=== PATIENT | male | born 1945 | race Caucasian/White ===

== ENCOUNTER 2016-04-21 23:01 | Inpatient (IN) | payer OTHER, MEDICARE ==
--- NOTE | 2016-04-21 23:17 | PDOC ---
History of Present Illness <Sherin Mendoza - Last Filed: 04/22/16 02:52> - General History Source: Patient, Family, Spouse Exam Limitations: No Limitations - History of Present Illness Initial Comments: 04/21/16 23:55 The patient is a 70 year old male, with a significant past medical history of anemia, diabetes (on metformin), GERD, UTIs, hypertension, and hypothyroidism, who presents to the emergency department s/p syncopal episode about an hour ago. As per , she and the patient were out for dinner when suddenly the patient reported feeling dizzy and lightheaded. During this time, she got up to get him something to drink. When she came back the patient was passed out on the table for a couple of seconds. As per son, this was the patients first meal of the day. Since the episode, the patient reports feeling generally weak and is cold to the touch. The patient reports he is compliant with his diabetes medication. He states he visited his PCP, Dr. Calvillo, 2-3 days ago for a routine check up, where he was found to have a UTI. Prior to his visit to his PCP, he reports increased urinary frequency, but denies urgency, dysuria, or hematuria. The patient states his frequency continues today. The patient denies any nausea, vomiting, diarrhea, or constipation. The patient denies any fever, chills, cough, headache, or changes in vision. The patient denies any chest pain , diaphoresis, palpitations, or shortness of breath. The patient denies any recent travel or sick contacts. Allergies: None reported. Past Surgical History: Cholecystectomy, LAMI Social History: Former smoker and former ETOH consumer. Denies drug use. PCP: Dr. Chasity Calvillo <Deondre Soto - Last Filed: 04/22/16 03:04> - General Stated Complaint: DIABETIC Time Seen by Provider: 04/21/16 23:16 Past History - Past Medical History Anemia: Yes Asthma: No Cancer: No Cardiac Disorders: No CVA: No COPD: No CHF: No Dementia: No Diabetes: Yes (newly diagnosed, on metformin) GI Disorders: Yes (GERD) Disorders: Yes (UTI b/c urosepsis requiring ICU admission 2013) HTN: Yes Hypercholesterolemia: No Liver Disease: No Suicide Attempt (Hx): No Seizures: No Thyroid Disease: Yes - Surgical History Abdominal Surgery: No Appendectomy: No Cardiac Surgery: No Cholecystectomy: Yes (1976) Lung Surgery: No Neurologic Surgery: No Orthopedic Surgery: Yes (LAMI) - Psycho/Social/Smoking Cessation Hx Anxiety: No Suicidal Ideation: No Smoking History: Never smoked Have you smoked in the past 12 months: No Number of Cigarettes Smoked Daily: 5 If you are a former smoker, when did you quit?: 2000 Hx Alcohol Use: No Drug/Substance Use Hx: Yes Substance Use Type: Alcohol Hx Substance Use Treatment: No <Sherin Mendoza - Last Filed: 04/22/16 02:52> <Deondre Soto - Last Filed: 04/22/16 03:04> - Past Medical History Allergies/Adverse Reactions: Allergies Allergy/AdvReac Type Severity Reaction Status Date / Time No Known Allergies Allergy Verified 04/18/15 11:21 Home Medications: Ambulatory Orders Esomeprazole Mag Trihydrate [Nexium] 40 mg PO DAILY 10/28/13 Levothyroxine [Synthroid -] 100 mcg PO DAILY 10/28/13 Losartan/Hydrochlorothiazide [Hyzaar 50-12.5 Tablet] 1 each PO DAILY 10/28/13 Multivitamins [Multivit ([facility] Formulary)] 1 tab PO DAILY 10/28/13 Nebivolol HCl [Bystolic] 20 mg PO DAILY 10/28/13 Gabapentin 300 mg PO BID 09/28/14 Metformin HCl [Glucophage -] 500 mg PO BID 09/28/14 Tamsulosin HCl [Flomax -] 0.4 mg PO DAILY 09/28/14 Review of Systems - Review of Systems Able to Perform ROS?: Yes Comments:: 04/21/16 23:55 GENERAL/CONSTITUTIONAL: +Chills, +weakness. No fever. HEAD, EYES, EARS, NOSE AND THROAT: No change in vision. No ear pain or discharge. No sore throat. CARDIOVASCULAR: No chest pain or shortness of breath. RESPIRATORY: No cough, wheezing, or hemoptysis. GASTROINTESTINAL: No nausea, vomiting, diarrhea or constipation. GENITOURINARY: +Frequency. No dysuria or change in urination. MUSCULOSKELETAL: No joint or muscle swelling or pain. No neck or back pain. SKIN: No rash NEUROLOGIC: +Loss of consciousness. No headache, vertigo, or change in strength /sensation. ENDOCRINE: No increased thirst. No abnormal weight change. HEMATOLOGIC/LYMPHATIC: No anemia, easy bleeding, or history of blood clots. ALLERGIC/IMMUNOLOGIC: No hives or skin allergy. <Deondre Soto - Last Filed: 04/22/16 03:04> *Physical Exam - Vital Signs Last Vital Signs Temp Pulse Resp BP Pulse Ox 97 F L 62 18 103/64 95 04/21/16 23:01 04/21/16 23:30 04/21/16 23:01 04/21/16 23:30 04/21/16 23:01 - Physical Exam Comments: 04/21/16 23:55 GENERAL: Awake, alert, and fully oriented, in no acute distress. Afebrile. HEAD: No signs of trauma EYES: PERRLA, EOMI, sclera anicteric, conjunctiva clear ENT: Auricles normal inspection, hearing grossly normal, nares patent, oropharynx clear without exudates. Moist mucosa NECK: Normal ROM, supple, no lymphadenopathy, JVD, or masses LUNGS: Breath sounds equal, clear to auscultation bilaterally. No wheezes, and no crackles HEART: Regular rate and rhythm, normal S1 and S2, no murmurs, rubs or gallops ABDOMEN: Soft, nontender, normoactive bowel sounds. No guarding, no rebound. No masses EXTREMITIES: Normal range of motion, no edema. No clubbing or cyanosis. No cords, erythema, or tenderness NEUROLOGICAL: Cranial nerves II through XII grossly intact. Normal speech, normal gait SKIN: Warm, Dry, normal turgor, no rashes or lesions noted. <Deondre Soto - Last Filed: 04/22/16 03:04> Heart Score/ECG Review - ECG Impressions Comment:: 04/22/16 03:03 Vent. Rate: 63 bpm IMPRESSION: Normal sinus rhythm. Left axis deviation. Incomplete right bundle branch block. Minimal voltage criteria for LVH, may be normal variant. 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 PT FINALLY WENT TO DINNER WITH HIS , AND AFTER DINNER HE TOLD HER HE FELT DIZZY. SHE GOT UP TO GET HI A COKE AND CAME BACK AND FOUND HIM SLUMPED FORWARD ; HEAD ON THE TABLE. HE HAD NO SEIZURE ACTIVITY, AND HE STATES THAT HE DID NOT LOSE CONSCIOUSNESS. CT HEAD NORMAL. 04/22/16 01:27 Patient Name: Isaiah Corrales This is a preliminary report by imaging business intelligence consultant Exam: Noncontrast CT head Images: 227 Clinical indication: Syncope. Findings: Multiple axial images were obtained of the brain without contrast. There is no mass-effect, midline shift or hemorrhage. There is no intra-axial or extra-axial fluid collection. Atrophic involutional changes are noted. The visualized portions of the paranasal sinuses are clear. The middle ear cavities and mastoids are clear. Impression: No mass effect or intracranial hemorrhage. THIS DOCUMENT HAS BEEN ELECTRONICALLY SIGNED Pt states that his PMD started him on bactrim for uti on 04/18/16. Pt states that he had been urinating a lot and he is still urinating a lot. 04/22/16 01:28 His CPK is elevated and his CK-MB is elevated also. He has a normal EKG and normal troponin. I will admit him to telemetry for neuro consult and serial cardiac enzymes. <Sherin Mendoza - Last Filed: 04/22/16 02:52> *DC/Admit/Observation/Transfer - Discharge Dispostion Admit: Yes <Sherin Mendoza - Last Filed: 04/22/16 02:52> - Attestations Scribe Attestion: 04/21/16 23:56 Documentation prepared by Deondre Soto, acting as medical staff specialist for Sherin Mendoza MD. <Deondre Soto - Last Filed: 04/22/16 03:04> Diagnosis at time of Disposition: Syncopal episodes, Hypotension, Urinary tract infection - Discharge Dispostion Condition at time of disposition: Guarded
--- NOTE | 2016-04-21 23:28 | PDOC ---
NIH Stroke Scale - Last Known Well Date/Time & Onset Date Last Known Well: 04/21/16 Time Last Known Well: 22:00 - Initial Evaluation Level of consciousness: Alert Ask patient the month and their age: Answers both correctly Ask patient to open & close eyes; make fist and let go: Obeys both correctly Best gaze (horizontal eye movement): Normal Visual field testing: No visual field loss Facial paresis (Show teeth/raise eyebrows/close eyes tight): Normal symmetrical movement Motor Function: Left Arm: Normal Motor Function: Right Arm: Normal (extends arm 90 (or 45) degrees for 10 seconds without drift Motor Function: Left Leg: Normal (extends leg 30 degrees for 5 seconds without drift) Motor Function: Right Leg: Normal (extends leg 30 degrees for 5 seconds without drift) Limb Ataxia: No ataxia Sensory(Use pinprick test arms,legs,trunk,face/side to side): Normal Best language (Describe picture, name items, read sentences): No Aphasia Dysarthria (read several words): Normal articulation Extinction and Inattention: No abnormality - Total Score NIH Stroke Scale Score: 0
[2016-04-21] MEDS ORDERED: SODIUM CHLORIDE 0.9% 500 ML INFUS.BAG IV ONE (23:29)
[2016-04-22 00:02] LABS: BASOPHIL 0.4 % (0-2.0); EOSINOPHIL 2.1 % (0-4.5); MCH 27.2 pg (25.7-33.7); MEAN CELL VOLUME 82.3 fl (80-96); MEAN PLT VOLUME 6.2 fl (7.5-11.1); NEUTROPHILS 65.2 % (42.8-82.8); PLATELET COUNT 237 K/MM3 (134-434); RDW 14.2 % (11.9-15.9)
[2016-04-22 00:25] LABS: ALBUMIN 3.6 g/dl (3.4-5.0); ANION GAP 12 (8-16); BILIRUBIN,TOTAL 0.8 mg/dL (0.2-1.0); CALCIUM 8.1 mg/dL (8.5-10.1); CO2 22 mmol/L (21-32); CREATININE 1.3 mg/dL (0.7-1.3); GLUCOSE,RANDOM 137 mg/dL (74-106); SGOT/AST 27 U/L (15-37); SGPT/ALT 24 U/L (12-78); TOT PROT 6.6 g/dl (6.4-8.2)
[2016-04-22 00:28] LABS: ALK PHOS 88 U/L (45-117); TROPONIN I < 0.02 ng/ml (0.00-0.05)
[2016-04-22 00:32] LABS: INR 1.11 (0.82-1.09); PROTHROMBIN TIME (PATIENT) 12.2 SEC (9.98-11.88)
[2016-04-22 01:50] LABS: URINE APPEARANCE CLEAR; URINE BILIRUBIN NEGATIVE (NEGATIVE); URINE BLOOD NEGATIVE (NEGATIVE); URINE COLOR LTYELLOW; URINE GLUCOSE (UA) 1+ (NEGATIVE); URINE KETONE NEGATIVE (NEGATIVE); URINE LEUK ESTERASE NEGATIVE (NEGATIVE); URINE NITRITE NEGATIVE (NEGATIVE); URINE PROTEIN NEGATIVE (NEGATIVE); URINE UROBILINOGEN NEGATIVE E.U./dl (0.2-1.0)
[2016-04-22] MEDS ORDERED: SODIUM CHLORIDE 1,000 ML IV SCH (02:45)
[2016-04-22 04:16] VITALS: BMI 24.8
--- NOTE | 2016-04-22 05:29 | HP ---
CHIEF COMPLAINT: Syncope PCP: Dr. Chasity Clark, neurosurgeon HISTORY OF PRESENT ILLNESS: 70 year old male presented to the ED via EMS accompanied with his with the complain of one episode of syncope. A/c to the patient, he was at a restaurant for dinner. At around 9pm yesterday, having having dinner, he felt dizzy, after few seconds he passed out hitting his face on the table. Denies h/o fall from the chair, no trauma in his head, no seizure like activity noticed by the . As per his , patient gained consciousness within few seconds but was unable to speak for almost 3 minutes. He drank few sips of coke and felt better. Patient did have breakast and lunch today. Denies headache, ringing of ears, blurring of vision, chest pain, sob, cough, palpitation, abdominal pain, nausea or vomiting. Patient reports to have 2 similar episodes in the past. Last admitted on 04/18/2015 for syncope, work up was done but couldn't reach definitive diagnosis. Patient is compliant with his diabetic medication. Doesn't know his last HbA1c. Checks his blood sugar almost everyday which ranges between 90-120. Today morning his sugar was 101. ER course was notable for: (1) CBC, CMP, UA, troponin x 1 negative, CK-MB (2) CT head negative for any acute pathology (3) IV NS Recent Travel: None PAST MEDICAL HISTORY: DM, HTN, Constipation, GERD, Chronic low back pain, Hypothyroidism, Pernicous anemia, adneoma (diagnosed 5 years ago) PAST SURGICAL HISTORY: Laminectomy Social History: Smoking: Smoked 1pack/wk for 17 years, stopped 17 yrs ago Alcohol: Stopped ETOH 15 yrs ago Drugs: No illicit drug use HOSPITALIZATION: last admitted on for syncope Family History: Unknown Allergies No Known Allergies Allergy (Verified 04/22/16 04:25) HOME MEDICATIONS: Medication Instructions Recorded Esomeprazole Mag Trihydrate 40 mg PO DAILY 10/28/13 [Nexium] Levothyroxine [Synthroid -] 100 mcg PO DAILY 10/28/13 Losartan/Hydrochlorothiazide 1 each PO DAILY 10/28/13 [Hyzaar 50-12.5 Tablet] Multivitamins [Multivit ([facility] 1 tab PO DAILY 10/28/13 Formulary)] Nebivolol HCl [Bystolic] 20 mg PO DAILY 10/28/13 Gabapentin 300 mg PO BID 09/28/14 Metformin HCl [Glucophage -] 500 mg PO BID 09/28/14 Tamsulosin HCl [Flomax -] 0.4 mg PO DAILY 09/28/14 REVIEW OF SYSTEMS CONSTITUTIONAL: Absent: fever, chills, diaphoresis, generalized weakness, malaise, loss of appetite, weight change HEENT: Absent: rhinorrhea, nasal congestion, throat pain, throat swelling, difficulty swallowing, mouth swelling, ear pain, eye pain, visual changes CARDIOVASCULAR: Absent: chest pain, syncope, palpitations, irregular heart rate, lightheadedness , peripheral edema RESPIRATORY: Absent: cough, shortness of breath, dyspnea with exertion, orthopnea, wheezing, stridor, hemoptysis GASTROINTESTINAL: Absent: abdominal pain, abdominal distension, nausea, vomiting, diarrhea, constipation, melena, hematochezia GENITOURINARY: Absent: dysuria, frequency, urgency, hesitancy, hematuria, flank pain, genital pain MUSCULOSKELETAL: Absent: myalgia, arthralgia, joint swelling, back pain, neck pain SKIN: Absent: rash, itching, pallor HEMATOLOGIC/IMMUNOLOGIC: Absent: easy bleeding, easy bruising, lymphadenopathy, frequent infections ENDOCRINE: Absent: unexplained weight gain, unexplained weight loss, heat intolerance, cold intolerance NEUROLOGIC: Present: dizziness Absent: headache, focal weakness or paresthesias,unsteady gait, seizure, mental status changes, bladder or bowel incontinence PSYCHIATRIC: Absent: anxiety, depression, suicidal or homicidal ideation, hallucinations. PHYSICAL EXAMINATION Vital Signs - 24 hr 04/22/16 04/22/16 03:17 05:27 Temperature 97.7 F Pulse Rate 62 Pulse Rate [ 88 Radial] Respiratory 20 16 Rate Blood Pressure 128/70 Blood Pressure 116/66 [Left Arm] GENERAL: Elderly male, lying comfortably in bed, Awake, alert, and fully oriented, in no acute distress. HEAD: Normal with no signs of trauma. EYES: Pupils equal, round and reactive to light, extraocular movements intact, sclera anicteric, conjunctiva clear. No lid lag. EARS, NOSE, THROAT: Ears normal, nares patent, oropharynx clear without exudates. Moist mucous membranes. NECK: Normal range of motion, supple without lymphadenopathy, JVD, or masses. LUNGS: Breath sounds equal, clear to auscultation bilaterally. No wheezes, and no crackles. No accessory muscle use. HEART: Regular rate and rhythm, normal S1 and S2 without murmur, rub or gallop. ABDOMEN: Soft, nontender, not distended, normoactive bowel sounds, no guarding, no rebound, no masses. No hepatomegaly or splenomegaly. MUSCULOSKELETAL: Normal range of motion at all joints. No bony deformities or tenderness. No CVA tenderness. UPPER EXTREMITIES: 2+ pulses, warm, well-perfused. No cyanosis. No clubbing. Cap refill <2 seconds. No peripheral edema. LOWER EXTREMITIES: 2+ pulses, warm, well-perfused. No calf tenderness. No peripheral edema. NEUROLOGICAL: Cranial nerves II-XII intact. Normal speech. Normal gait, Bulk, power 5/5, tone, reflex normal. PSYCHIATRIC: Cooperative. Good eye contact. Appropriate mood and affect. SKIN: Warm, dry, normal turgor, no rashes or lesions noted. ASSESSMENT/PLAN: 70 year old male with significant PMHx of DM, HTN, Constipation, GERD, Chronic low back pain, Hypothyroidism, Pernicous anemia, adneoma (diagnosed 5 years ago ) presented to the ED via EMS accompanied with his with the complain of one episode of syncope. # Syncope Patient presented with 1 episode of witness syncope, no h/o trauma to head or fall, no h/o seizure like activity Has had 2 episodes of syncope in the past. As per workup for syncope done on 04/19/2015:Nuclear Stress test- moderate inferior fixed defect from base to apex compatible with diaphragmatic attenuation. Normal LV contraction with LVEF of 54%. TTE was unremarkable, EKGs showed sinus bradycardia. Orthostatics was unremarkable. There was no focal neurologic deficit, no todds paralysis, no tonic-clonic movement consistent with CVA or seizure Place him in observation Syncope workup: Echo, Carotid US ordered Neurology consult placed # Increase CK-MB, cause unknown Troponin x 1 negative, CK Normal Echo ordered Cardiology consult placed Second set of troponins pending, repeat EKG ordered # Hypertension HCTZ on hold. # Pernicious anemia-now Hb stable H/H 12.5/37.5 # GERD Continue Protnix # Hypothyroidism Continue Levothyroxine # FEN Not on IV fluids Electrolytes to be repeated this am Diabetic diet # Prophylaxis For DVT- On Scds For GI- On protonix # Code Status- Full Code # Dispo: Placed on observation in Tele. Duration of stay unknown Illness, Investigation and plan of care explained to the patient and his . They verbalized understanding. Case seen and discussed with Dr. Ruelas. Visit type - Emergency Visit Emergency Visit: Yes ED Registration Date: 04/22/16 Care time: The patient presented to the Emergency Department on the above date and was hospitalized for further evaluation of their emergent condition. - New Patient This patient is new to me today: Yes Date on this admission: 04/22/16 - Critical Care Critical Care patient: No
--- NOTE | 2016-04-22 05:57 | PN ---
Teaching Attending Note Name of Resident: Yulia Edward ATTENDING PHYSICIAN STATEMENT I saw and evaluated the patient. I reviewed the resident's note and discussed the case with the resident. I agree with the resident's findings and plan as documented. SUBJECTIVE: The patient is a 70 year old male, with a significant past medical history of anemia, diabetes , GERD, UTIs, hypertension, and hypothyroidism, who presents to the emergency department for having a syncopal episode after having dinner at 6pm last night. Patient started to feel dizzy and lightheadedness prior to the episode. Denies having any headache, no fever or chills, no shortness of breath. OBJECTIVE: Vital Signs Temperature 97.7 F 04/22/16 05:27 Pulse Rate 62 04/22/16 05:27 Respiratory Rate 16 04/22/16 05:27 Blood Pressure 128/70 04/22/16 05:27 O2 Sat by Pulse Oximetry (%) 95 04/21/16 23:01 GENERAL: Awake, alert, and fully oriented, in no acute distress. HEAD: Normal with no signs of trauma. EYES: Pupils equal, round and reactive to light, extraocular movements intact, sclera anicteric, conjunctiva clear. EARS, NOSE, THROAT: Ears normal, oropharynx clear without exudates. Moist mucous membranes. NECK: Normal range of motion, supple without lymphadenopathy, JVD, or masses. NO carotid bruit appreciated. LUNGS: Breath sounds equal, clear to auscultation bilaterally. No wheezes, and no crackles. No accessory muscle use. HEART: Regular rate and rhythm, normal S1 and S2 without murmur, rub or gallop. ABDOMEN: Soft, nontender, not distended, normoactive bowel sounds, no guarding, no rebound, no masses. No hepatomegaly or splenomegaly. MUSCULOSKELETAL: Normal range of motion at all joints. No bony deformities or tenderness. No CVA tenderness. EXTREMITIES: 2+ pulses, warm, well-perfused. No calf tenderness. No peripheral edema. NEUROLOGICAL: Cranial nerves II-XII intact. Normal speech. Normal gait. PSYCHIATRIC: Cooperative. Good eye contact. Appropriate mood and affect. SKIN: Warm, dry, normal turgor, no rashes or lesions noted. CBCD WBC 6.0 K/mm3 (4.0-10.0) 04/21/16 23:15 RBC 4.59 M/mm3 (4.00-5.60) 04/21/16 23:15 Hgb 12.5 GM/dL (11.7-16.9) 04/21/16 23:15 Hct 37.8 % (35.4-49) 04/21/16 23:15 MCV 82.3 fl (80-96) 04/21/16 23:15 MCHC 33.0 g/dl (32.0-35.9) 04/21/16 23:15 RDW 14.2 % (11.9-15.9) 04/21/16 23:15 Plt Count 237 K/MM3 (134-434) 04/21/16 23:15 MPV 6.2 fl (7.5-11.1) L 04/21/16 23:15 CMP Sodium 138 mmol/L (136-145) 04/21/16 23:16 Potassium 3.9 mmol/L (3.5-5.1) 04/21/16 23:16 Chloride 104 mmol/L (98-107) 04/21/16 23:16 Carbon Dioxide 22 mmol/L (21-32) 04/21/16 23:16 Anion Gap 12 (8-16) 04/21/16 23:16 BUN 26 mg/dL (7-18) H D 04/21/16 23:16 Creatinine 1.3 mg/dL (0.7-1.3) D 04/21/16 23:16 Creat Clearance w eGFR 54.42 (>60) 04/21/16 23:16 Random Glucose 137 mg/dL (74-106) H D 04/21/16 23:16 Calcium 8.1 mg/dL (8.5-10.1) L 04/21/16 23:16 Total Bilirubin 0.8 mg/dL (0.2-1.0) D 04/21/16 23:16 AST 27 U/L (15-37) D 04/21/16 23:16 ALT 24 U/L (12-78) D 04/21/16 23:16 Alkaline Phosphatase 88 U/L (45-117) 04/21/16 23:16 Total Protein 6.6 g/dl (6.4-8.2) 04/21/16 23:16 Albumin 3.6 g/dl (3.4-5.0) 04/21/16 23:16 CARDIAC ENZYMES Creatine Kinase 295 IU/L (39-308) D 04/21/16 23:16 Troponin I < 0.02 ng/ml (0.00-0.05) 04/21/16 23:16 Current Medications Generic Name Dose Route Start Last Admin Trade Name Los PRN Reason Stop Dose Admin Gabapentin 300 mg 04/22/16 10:00 Neurontin - PO BID MALENA HCTZ/Losartan Potassium 1 tab 04/22/16 10:00 Hyzaar - PO DAILY MALENA Sodium Chloride 1,000 mls @ 100 mls/hr 04/22/16 02:45 04/22/16 04:51 Normal Saline - IV 100 mls/hr ASDIR MALENA Administration Levothyroxine Sodium 100 mcg 04/22/16 07:00 Synthroid - PO DAILY@0700 MALENA Pantoprazole Sodium 40 mg 04/22/16 10:00 Protonix - PO DAILY [facility] Medication Instructions Recorded Esomeprazole Mag Trihydrate 40 mg PO DAILY 10/28/13 [Nexium] Levothyroxine [Synthroid -] 100 mcg PO DAILY 10/28/13 Losartan/Hydrochlorothiazide 1 each PO DAILY 10/28/13 [Hyzaar 50-12.5 Tablet] Multivitamins [Multivit ([facility] 1 tab PO DAILY 10/28/13 Formulary)] Nebivolol HCl [Bystolic] 20 mg PO DAILY 10/28/13 Gabapentin 300 mg PO BID 09/28/14 Metformin HCl [Glucophage -] 500 mg PO BID 09/28/14 Tamsulosin HCl [Flomax -] 0.4 mg PO DAILY 09/28/14 ASSESSMENT AND PLAN: The patient is a 70 year old male, with a significant past medical history of anemia, diabetes (on metformin), GERD, UTIs, hypertension, and hypothyroidism, who presents to the emergency department s/p syncopal episode. # Acute syncope most likely Vasovagal , admit to tele, Duplex of carotids, Echo r/o LV Dysfunction. # Arf on Metformin will hold it for now and start the on SS with coverage and IVF # Acute dehydration IVF # Hx of hypothyroidism on synthroid continue #Hx of HTN continue meds # hX OF GERD CONTINUE Nexium DVT Px: SCD
[2016-04-22] MEDS ORDERED: INSULIN SLIDING SCALE (NOVOLOG) 1 VIAL SQ SCH ×2 (07:00)
[2016-04-22] MEDS ORDERED: LEVOTHYROXINE NA 100 MCG TABLET (FP) PO SCH (07:00)
[2016-04-22 08:13] LABS: MCH 27.4 pg (25.7-33.7); MCHC 33.5 g/dl (32.0-35.9); PLATELET COUNT 234 K/MM3 (134-434); RDW 14.2 % (11.9-15.9); WHITE BLOOD COUNT 5.4 K/mm3 (4.0-10.0)
[2016-04-22 08:26] VITALS: BP 131/74; PULSE 60; TEMP 98.1
[2016-04-22 08:53] LABS: MAGNESIUM 2.3 mg/dL (1.8-2.4); PHOSPHOROUS 3.2 mg/dL (2.5-4.9)
[2016-04-22 08:57] LABS: ALBUMIN 3.7 g/dl (3.4-5.0); ANION GAP 11 (8-16); CALCIUM 8.3 mg/dL (8.5-10.1); CO2 25 mmol/L (21-32); GLUCOSE,RANDOM 98 mg/dL (74-106); SGOT/AST 23 U/L (15-37); SGPT/ALT 24 U/L (12-78); TROPONIN I < 0.02 ng/ml (0.00-0.05)
[2016-04-22 08:59] LABS: ALK PHOS 100 U/L (45-117); BILIRUBIN,TOTAL 0.7 mg/dL (0.2-1.0); TOT PROT 6.8 g/dl (6.4-8.2)
--- NOTE | 2016-04-22 09:58 | PN ---
Progress Note (short form) - Note Progress Note: Chief Complaint: Events noted, notes reviewed, syncope with a questionable prodrome for vaso-vagal syncope History of Present Illness: Seen and examined on telemetry. Full consult dictated Echocardiography performed 04/19/15 revealed normal LV size and function, mild to moderate AR, mild MR and TR with RVSP of 30-40 mmHg MPI study dated 04/18/15 revealed no ischemia with normal LV EF of 54% Medications: Current Medications Gabapentin (Neurontin -) 300 mg PO BID [facility] Last Admin: 04/22/16 09:00 Dose: 300 mg Sodium Chloride (Normal Saline -) 1,000 mls @ 100 mls/hr IV ASDIR [facility] Last Admin: 04/22/16 04:51 Dose: 100 mls/hr Insulin Aspart (Novolog Vial Sliding Scale -) 1 vial SQ ACHS [facility] PRN Reason: Protocol Last Admin: 04/22/16 06:25 Dose: Not Given Levothyroxine Sodium (Synthroid -) 100 mcg PO DAILY@0700 [facility] Last Admin: 04/22/16 06:24 Dose: 100 mcg Losartan Potassium (Cozaar -) 50 mg PO DAILY [facility] Last Admin: 04/22/16 09:00 Dose: 50 mg Pantoprazole Sodium (Protonix -) 40 mg PO DAILY [facility] Last Admin: 04/22/16 09:00 Dose: 40 mg Review of Systems - Review of Systems Constitutional: denies: Chills, Fever Cardiovascular: As noted above Respiratory: denies: Cough or Sputum Production Gastrointestinal: denies: Nausea, Vomiting, Diarrhea, Constipation or Abdominal Pain Neurological: No Symptoms Reported Vital Signs: Last Vital Signs Temp Pulse Resp BP Pulse Ox 98.1 F 60 18 131/74 95 04/22/16 08:00 04/22/16 08:00 04/22/16 08:00 04/22/16 08:00 04/21/16 23:01 Neck: Supple Negative JVD No Bruit Respiratory: Clear to A&P Cardiovascular: S1 S2 Regular Rate and Rhythm Gastrointestinal: Soft Benign Normal Bowel Sounds Ext: Negative Edema Labs: Troponin, BNP 04/21/16 04/22/16 23:16 07:30 Troponin I < 0.02 < 0.02 CBC, BMP 04/22/16 07:30 04/22/16 07:30 Hepatic Panel Total Bilirubin 0.7 mg/dL (0.2-1.0) 04/22/16 07:30 AST 23 U/L (15-37) 04/22/16 07:30 ALT 24 U/L (12-78) 04/22/16 07:30 Alkaline Phosphatase 100 U/L (45-117) 04/22/16 07:30 Albumin 3.7 g/dl (3.4-5.0) 04/22/16 07:30 INR, PTT INR 1.11 (0.82-1.09) 04/21/16 23:16 Assessment/Plan ASSESSMENT: 1. Clinical presentation is suggestive of vaso-vagal syncope, neuro-cardiogenic syncope to be excluded (vasodepressor vs. cardioinhibitory) 2. HTN 3. DM 4. Hypercholesterolemia 5. Hypothyroidism 6. Pre-renal azotemia, dehydration PLAN: 1. Consider B-Blockers for HTN management instead of Cozaar 2. Avoid vasodilators and diuretics 3. Add ASA 4. Add Statins 5. Avoid Flomax use 6. 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 Mickie Desir in [place], [place] Dion Aguilera M.D.
[2016-04-22] MEDS ORDERED: GABAPENTIN 300 MG CAPSULE (FP) PO SCH (10:00)
[2016-04-22] MEDS ORDERED: LOSARTAN 50MG/HCTZ 12.5MG 1 TAB (FP) PO SCH (10:00)
[2016-04-22] MEDS ORDERED: PANTOPRAZOLE 40 MG TABLET (FP) PO SCH (10:00)
[2016-04-22] MEDS ORDERED: LOSARTAN POTASSIUM 50 MG TABLET (FP) PO SCH (10:00)
[2016-04-22] MEDS ORDERED: ASPIRIN COATED 81 MG TABLET.EC PO SCH (10:45)
--- NOTE | 2016-04-22 11:47 | CONSULT ---
Consult Consult Specialty:: Neurology Reason for Consultation:: Syncope - History of Present Illness History of Present Illness: 70 year old man, history of syncope, diabetes, hypertension, and hypothyroid, presented with episode of syncope. Patient was out to dinner when he felt lightheaded and passed out on the table for a few seconds. Patient states he has had two similar episodes in the past. During episodes denies any seizure like activity, denies tongue biting or incontinence, denies post ictal confusion CT head complete, final report pending Patient feels back to baseline - Past Medical History Cardio/Vascular: Yes: HTN Gastrointestinal: Yes: Constipation, GERD Musculoskeletal: Yes: Chronic low back pain Endocrine: Yes: Hypothyroidism - Past Surgical History Past Surgical History: Yes: Laminectomy - Alcohol/Substance Use Hx Alcohol Use: No History of Substance Use: reports: None - Smoking History Smoking history: Former smoker Have you smoked in the past 12 months: No Aproximately how many cigarettes per day: 5 If you are a former smoker, when did you quit?: 2000 - Social History ADL: Independent History of Recent Travel: No Home Medications - Allergies Allergies/Adverse Reactions: Allergies Allergy/AdvReac Type Severity Reaction Status Date / Time No Known Allergies Allergy Verified 04/22/16 04:25 - Home Medications Home Medications: Ambulatory Orders Esomeprazole Mag Trihydrate [Nexium] 40 mg PO DAILY 10/28/13 Levothyroxine [Synthroid -] 100 mcg PO DAILY 10/28/13 Losartan/Hydrochlorothiazide [Hyzaar 50-12.5 Tablet] 1 each PO DAILY 10/28/13 Multivitamins [Multivit ([facility] Formulary)] 1 tab PO DAILY 10/28/13 Nebivolol HCl [Bystolic] 20 mg PO DAILY 10/28/13 Gabapentin 300 mg PO BID 09/28/14 Metformin HCl [Glucophage -] 500 mg PO BID 09/28/14 Tamsulosin HCl [Flomax -] 0.4 mg PO DAILY 09/28/14 Review of Systems - Review of Systems Constitutional: reports: No Symptoms Eyes: reports: No Symptoms HENT: reports: No Symptoms Neck: reports: No Symptoms Cardiovascular: reports: No Symptoms Respiratory: reports: No Symptoms Neurological: reports: Syncope Physical Exam Vital Signs: Vital Signs Temperature 98.1 F 04/22/16 08:00 Pulse Rate 60 04/22/16 08:00 Respiratory Rate 18 04/22/16 08:00 Blood Pressure 131/74 04/22/16 08:00 O2 Sat by Pulse Oximetry (%) 95 04/21/16 23:01 Labs: CBC, BMP 04/22/16 07:30 04/22/16 07:30 Problem List - Problems (1) Syncopal episodes Code(s): R55 - SYNCOPE AND COLLAPSE Assessment/Plan 70 year old man, history of syncope, diabetes, hypertension, and hypothyroid, presented with episode of syncope. Patient was out to dinner when he felt lightheaded and passed out on the table for a few seconds. Patient states he has had two similar episodes in the past. During episodes denies any seizure like activity, denies tongue biting or incontinence, denies post ictal confusion Impression Syncope CT head complete, final report pending Patient feels back to baseline Recommend If final CT head report negative, OK from neuro stand point to go home and follow up with neuro as outpatient EEG as outpatient No need to start AEDs as syncopal episodes appear to be less likely secondary to seizures Recommend cardiology workup, may require holter as outpatient Please call if further questions
[2016-04-22] MEDS ORDERED: metFORMIN HCL 500 MG TABLET (FP) PO ONE (12:32)
[2016-04-22] MEDS ORDERED: METOPROLOL SUCCINATE 25 MG TAB.SR.24H (FP) PO SCH (12:45)
[2016-04-22 12:46] LABS: THYROID STIMULATING HORMONE 5.03 uIU/ml (0.358-3.74)
--- NOTE | 2016-04-22 13:25 | DS ---
Physical Exam: SUBJECTIVE: Patient seen and examined. no repeated episodes of dizzyness or LOC. states that he had dizzyness prior to witnessed syncope. he did not eat all day and as he finished his meal he had dizzyness then LOC. states he was started on abx for UTI 3 days earlier and is still taking it (does not know name ). had 3 previous episodes over the past 2 years with the last one this time last year. that time he was also being treated for UTI and full cardiac workup was done. several medications changes since this time with the most recent being the initiation of flomax. also states he has hx of afib and on amio which he takes every other day. never has symptoms of palpitaitons or other assoc symptoms. denies CP, SOB, fever, chills, N/V/C?D OBJECTIVE: Vital Signs Period Temp Pulse Resp BP Sys/De [place] Pulse Ox Last 24 Hr 97.7 F-98.1 F 60-88 16-20 116-131/66-74 PHYSICAL EXAM GENERAL: The patient is awake, alert, and fully oriented, in no acute distress. HEAD: Normal with no signs of trauma. EYES: PERRL, extraocular movements intact, sclera anicteric, conjunctiva clear. ENT: Ears normal, nares patent, oropharynx clear without exudates, moist mucous membranes. NECK: Trachea midline, full range of motion, supple. LUNGS: Breath sounds equal, clear to auscultation bilaterally, no wheezes, no crackles, no accessory muscle use. HEART: Regular rate and rhythm, S1, S2 without murmur, rub or gallop. ABDOMEN: Soft, nontender, nondistended, normoactive bowel sounds, no guarding, no rebound, no hepatosplenomegaly, no masses. EXTREMITIES: 2+ pulses, warm, well-perfused, no edema. NEUROLOGICAL: Cranial nerves II through XII grossly intact. Normal speech, gait not observed. PSYCH: Normal mood, normal affect. SKIN: Warm, dry, normal turgor, no rashes or lesions noted. LABS Laboratory Results - last 24 hr 04/22/16 04/22/16 04/22/16 05:52 07:30 07:30 WBC 5.4 RBC 4.73 Hgb 13.0 Hct 38.8 MCV 82.0 MCHC 33.5 RDW 14.2 Plt Count 234 MPV 6.0 L Sodium 140 Potassium 4.4 Chloride 104 Carbon Dioxide 25 Anion Gap 11 BUN 20 H D Creatinine 1.0 D Creat Clearance w eGFR > 60 POC Glucometer 104 Random Glucose 98 D Calcium 8.3 L Phosphorus Magnesium Total Bilirubin 0.7 AST 23 ALT 24 Alkaline Phosphatase 100 Creatine Kinase Creatine Kinase Index CK-MB (CK-2) CK-MB (CK-2) Rel Index Troponin I Total Protein 6.8 Albumin 3.7 TSH 04/22/16 04/22/16 04/22/16 07:30 07:30 07:30 WBC RBC Hgb Hct MCV MCHC RDW Plt Count MPV Sodium Potassium Chloride Carbon Dioxide Anion Gap BUN Creatinine Creat Clearance w eGFR POC Glucometer Random Glucose Calcium Phosphorus 3.2 Magnesium 2.3 D Total Bilirubin AST ALT Alkaline Phosphatase Creatine Kinase 262 Creatine Kinase Index 3.1 CK-MB (CK-2) 8.127 H CK-MB (CK-2) Rel Index Cancelled Troponin I < 0.02 Total Protein Albumin TSH 5.03 H 04/22/16 11:04 WBC RBC Hgb Hct MCV MCHC RDW Plt Count MPV Sodium Potassium Chloride Carbon Dioxide Anion Gap BUN Creatinine Creat Clearance w eGFR POC Glucometer 82 Random Glucose Calcium Phosphorus Magnesium Total Bilirubin AST ALT Alkaline Phosphatase Creatine Kinase Creatine Kinase Index CK-MB (CK-2) CK-MB (CK-2) Rel Index Troponin I Total Protein Albumin TSH HOSPITAL COURSE: Date of Admission:04/22/16 Date of Discharge: 04/22/16 admitting Diagnosis: Syncope Pre hospital course 70 year old male presented to the ED via EMS accompanied with his with the complain of one episode of syncope. A/c to the patient, he was at a restaurant for dinner. At around 9pm yesterday, having having dinner, he felt dizzy, after few seconds he passed out hitting his face on the table. Denies h/o fall from the chair, no trauma in his head, no seizure like activity noticed by the . As per his , patient gained consciousness within few seconds but was unable to speak for almost 3 minutes. He drank few sips of coke and felt better. Patient did have breakast and lunch today. Denies headache, ringing of ears, blurring of vision, chest pain, sob, cough, palpitation, abdominal pain, nausea or vomiting. Patient reports to have 2 similar episodes in the past. Last admitted on 04/18/2015 for syncope, work up was done but couldn't reach definitive diagnosis. Patient is compliant with his diabetic medication. Doesn't know his last HbA1c. Checks his blood sugar almost everyday which ranges between 90-120. Today morning his sugar was 101. Subsequent hospital course: tele observation. no events on cardiac monitoring. cardiac markers neg x2. BP medications held. evaluated by cardio and neuro. no repeated episodes witnessed. CT head & UA negative. flomax and losartan d/c. started on metoprolol. metformin dose decreased to daily dosing. d/c home. recommended to f /u with cardio on sunday. will likely benefit from holter to evaluate for other arrhythmia vs uncontrolled afib. also recommend tilt table testing if negative to complete syncope workup Dr Mukesh Desir [phone] Minutes to complete discharge: 40 Discharge Summary Reason For Visit: UTI, HYPOTENSION Current Active Problems Hypotension (Acute) Syncopal episodes (Acute) Urinary tract infection (Acute) Condition: Improved - Instructions Diet, Activity, Other Instructions: your home medications has changed. refer to medication list to for these changes Follow up with your strategic account director on Sunday, you should have a holter monitor placed to further evaluate if you have episodes of atrial fibrillation. You should not drive or operate heavy machinery until this is further evaluated. You may benefit from a tilt table test Follow up with your primary care doctor this week. You will need to have your A1c checked in 3 months. If your symptoms return, return to the ER. Disposition: HOME - Home Medications Comprehensive Discharge Medication List: Ambulatory Orders Esomeprazole Mag Trihydrate [Nexium] 40 mg PO DAILY 10/28/13 Levothyroxine [Synthroid -] 100 mcg PO DAILY 10/28/13 Multivitamins [Multivit ([facility] Formulary)] 1 tab PO DAILY 10/28/13 Gabapentin 300 mg PO BID 09/28/14 Amiodarone HCl [Cordarone -] Q48H 04/22/16 Atorvastatin Ca [Lipitor] 10 mg PO HS tablet 04/22/16 Metformin HCl [Glucophage -] 500 mg PO DAILY #30 tablet 04/22/16 Metoprolol Succinate [Toprol XL -] 25 mg PO DAILY #30 tab.sr.24h 04/22/16 This patient is new to me today: Yes Date on this admission: 04/22/16 Emergency Visit: Yes ED Registration Date: 04/22/16 Care time: The patient presented to the Emergency Department on the above date and was hospitalized for further evaluation of their emergent condition. Critical Care patient: No - Discharge Referral Referred to [facility] Med P.C.: No
--- NOTE | 2016-04-22 14:08 | CONS ---
DATE OF CONSULTATION: 04/22/2016 REQUESTING PHYSICIAN: Hospitalist. CHIEF COMPLAINT: Syncope, cardiovascular evaluation. HISTORY OF PRESENT ILLNESS: A 70-year-old male with known history of hypertensive cardiovascular disease, diabetes mellitus, hypercholesterolemia, prior syncopal episodes, hypothyroidism, benign prostatic hypertrophy, who presented to [facility] with a recurrent syncopal episode after dinner. According to the patient, he had a prolonged day and subsequently after dinner he had sudden onset of profuse diaphoresis followed by a syncopal episode. Patient did not report any associated palpitations. Patient did not report any injuries. Similar presentation has been noted in the past and prior evaluation has been performed, including echocardiography dating April 19, 2015, which revealed normal left ventricular systolic function with mild mitral and tricuspid valve regurgitation and mild to moderate aortic valve regurgitation with calculated RVSP of 30 to 40 mmHg. In addition, myocardial perfusion imaging study performed April 18, 2015, did not reveal any evidence of myocardial ischemia with normal left ventricular contraction pattern on LV gated analysis and calculated left ventricular ejection fraction of 54%. Patient denies any chest discomfort. Patient denies any dyspnea, orthopnea, paroxysmal nocturnal dyspnea, or peripheral edema. Patient denies any fatigue or tiredness. PAST MEDICAL HISTORY: Hypertensive cardiovascular disease, diabetes mellitus, hypercholesterolemia, syncope, hypothyroidism. PAST SURGICAL HISTORY: Cholecystectomy, hernia repair. ALLERGIES: No known medical allergies. MEDICAL THERAPY: At home included: 1. Metformin 500 mg twice a day. 2. Cozaar 50 mg once a day in substitution for Hyzaar. 3. Robel-Mag 0.4 mg once a day. 4. Neurontin 300 mg twice a day. 5. Multivitamin 1 tablet once a day. 6. Nexium 40 mg once a day for gastroesophageal reflux disease. 7. Synthroid 100 mcg once a day. SOCIAL HISTORY: Denies smoking. FAMILY HISTORY: Positive for coronary artery disease. REVIEW OF SYSTEMS:Head and Neck: Denies headache, photophobia, blurring of vision. Respiratory: Denies cough or sputum production. Cardiovascular: As noted above. Gastrointestinal: Denies nausea, vomiting, diarrhea, abdominal discomfort. Genitourinary: No symptoms reported. PHYSICAL EXAMINATION:Vital Signs: Blood pressure is 131/74 mmHg, pulse rate is 60 beats per minute. Head and Neck: Pupil equally reactive to light and accommodation. Extraocular muscles intact. Anicteric sclerae. Negative JVD. No bruit appreciated. Chest: Clear to auscultation and percussion.Cardiovascular: S1, S2 regular. No murmurs, clicks, or gallops. Abdomen: Soft, benign. Normoactive bowel sound. Extremities: Negative edema. Intact distal pulses. No calf tenderness. DIAGNOSTIC DATA:Electrocardiogram: Reveals sinus rhythm with left axis deviation. Chest x-ray: Report was noted. CBC revealed a white cell count 5.4, hemoglobin 13.0, platelet count 234. INR 1.11. Basic metabolic profile revealed sodium 140, potassium 4.4, BUN of 20, creatinine 1.0, glucose 104. Troponin I less than 0.02. ASSESSMENT: 1. Clinical presentation is suggestive of vasovagal syncope. Neurocardiogenic syncope to be excluded (vasodepressor versus cardioinhibitory). 2. Hypertensive cardiovascular disease. 3. Diabetes mellitus. 4. Hypercholesterolemia. 5. Hypothyroidism. 6. Prerenal azotemia, probable dehydration. RECOMMENDATIONS: 1. Consider beta blockers for hypertension management instead of Cozaar. 2. Avoidance of vasodilators and diuretics. 3. Addition of aspirin. 4. Addition of statin therapy. 5. Avoidance of Flomax use. 6. Patient will require additional cardiovascular evaluation, including repeat echocardiography and probable tilt table testing which can be performed on outpatient basis. Above was reviewed in detail with the patient, who is to follow up with his maintenance analyst, Dr. Mickie Desir, in [place], [place]. Thank you for the kind referral. GABO PARR M.D. [id number]
[2016-04-22] MEDS ORDERED: ATORVASTATIN CA 10 MG TABLET (FP) PO SCH (22:00)
--- NOTE | 2016-04-23 09:39 | EKG ---
Test Reason : Blood Pressure : / mmHG Vent. Rate : 062 BPM Atrial Rate : 062 BPM P-R Int : 202 ms QRS Dur : 110 ms QT Int : 410 ms P-R-T Axes : 023 -35 044 degrees QTc Int : 416 ms NORMAL SINUS RHYTHM LEFT AXIS DEVIATION ABNORMAL ECG WHEN COMPARED WITH ECG OF 21-APR-2016 23:50, NO SIGNIFICANT CHANGE WAS FOUND Confirmed by JAMESON PATTON MD ([id number]) on 04/23/2016 9:39:13 AM Referred By: Favian LOUIS Confirmed By:JAMESON PATTON MD
--- NOTE | 2016-04-23 09:40 | EKG ---
Test Reason : Blood Pressure : / mmHG Vent. Rate : 063 BPM Atrial Rate : 063 BPM P-R Int : 192 ms QRS Dur : 108 ms QT Int : 450 ms P-R-T Axes : 018 -33 050 degrees QTc Int : 460 ms NORMAL SINUS RHYTHM LEFT AXIS DEVIATION INCOMPLETE RIGHT BUNDLE BRANCH BLOCK MINIMAL VOLTAGE CRITERIA FOR LVH, MAY BE NORMAL VARIANT ABNORMAL ECG WHEN COMPARED WITH ECG OF 18-APR-2015 11:37, T WAVE INVERSION NO LONGER EVIDENT IN INFERIOR LEADS Confirmed by JAMESON PATTON MD ([id number]) on 04/23/2016 9:40:32 AM Referred By: Confirmed By:JAMESON PATTON MD
[2016-04-23] MEDS ORDERED: METOPROLOL SUCCINATE 50 MG TAB.SR.24H (FP) PO SCH (10:00)
== END 2016-04-22 14:19 | disposition home or self-care (01) | DRG 312 ==
LOC: JER 23:01 → JERBED 04-22 02:55 → J4W 04-22 05:30
PROVIDERS: ADMIT Internal Medicine; ATTEND Internal Medicine
DX: R55 Syncope and collapse (principal); N39.0 Urinary tract infection, site not specified; I95.9 Hypotension, unspecified; E11.9 Type 2 diabetes mellitus without complications; I10 Essential (primary) hypertension; E03.9 Hypothyroidism, unspecified; E86.0 Dehydration; K21.9 Gastro-esophageal reflux disease without esophagitis; D51.0 Vitamin B12 deficiency anemia due to intrinsic factor deficiency
CPT/HCPCS: 36415; 70450-TC; 71010-TC; 80053; 81003; 82550; 82553; 83735; 84100; 84443; 84484; 85025; 85027; 85610; 87086; 93005; 93010; 99285-25

== ENCOUNTER 2017-04-11 13:25 | Emergency (ER) | payer OTHER, MEDICARE ==
[2017-04-11 13:37] VITALS: BMI 26.0
--- NOTE | 2017-04-11 13:42 | PDOC ---
History of Present Illness - General Stated Complaint: WEAKNESS Time Seen by Provider: 04/11/17 13:41 - History of Present Illness Initial Comments: 04/11/17 14:07 71 yo M s/p lumbar thoracic laminectomy day 5 who presents with generalized weakness. Per patient daughter at bedside, he has been experiencing progressive weakness and difficulty with ambulation following recent discharge from hospital ( 04/09/17 ). She states that he became unresponsive yesterday evening while in car on attempt to transfer him into house. He was lethargic and unarousable for 10 minutes. EMS was called to pt. home, but patient refused transport to ED. Patient reports "feeling fine" today. He endorses continued dysuria, but denies hematuria, flank pain, or abdominal pain. He denies fevers/ chills, weakness, N/V, chest pain, SOB, cough, abdominal pain, constipation, diarrhea, sensory disturbance, DIAZ, vertigo, or syncope. Back pain has been well controlled with Valium Oxycodone. Patient is continuing to receive Bactrim for UTI. Laminectomy performed at [facility]. Past History - Past Medical History Allergies/Adverse Reactions: Allergies Allergy/AdvReac Type Severity Reaction Status Date / Time No Known Allergies Allergy Verified 04/11/17 13:29 Home Medications: Ambulatory Orders Esomeprazole Mag Trihydrate [Nexium] 40 mg PO DAILY 10/28/13 Levothyroxine [Synthroid -] 100 mcg PO DAILY 10/28/13 Multivitamins [Multivit ([facility] Formulary)] 1 tab PO DAILY 10/28/13 Gabapentin 300 mg PO BID 09/28/14 Amiodarone HCl [Cordarone -] 200 mg PO Q48H 04/22/16 Atorvastatin Ca [Lipitor] 10 mg PO HS tablet 04/22/16 Metformin HCl [Glucophage -] 500 mg PO DAILY #30 tablet 04/22/16 Metoprolol Succinate [Toprol XL -] 25 mg PO DAILY #30 tab.sr.24h 04/22/16 Acetaminophen [Tylenol] 325 tab PO PRN 04/11/17 Oxycodone HCl 5 mg PO PRN 04/11/17 Sulfamethoxazole/Trimethoprim [Bactrim DS -] 800 mg PO BID 04/11/17 Anemia: Yes Asthma: No Cancer: No Cardiac Disorders: No CVA: No COPD: No CHF: No DVT: No Dementia: No Diabetes: Yes (newly diagnosed, on metformin) Dialysis: No GI Disorders: Yes (GERD) Disorders: Yes (UTI b/c urosepsis requiring ICU admission 2013) HTN: Yes Hypercholesterolemia: No Kidney Stones: No Liver Disease: No Psychiatric Problems: No Seizures: No Thyroid Disease: Yes (hypo.) Lung CA: No Other medical history: neuropathy. - Surgical History Abdominal Surgery: Yes Appendectomy: No Cardiac Surgery: No Cholecystectomy: Yes (1975) Gastric Stapling: No GI Surgery: No Lung Surgery: No Neurologic Surgery: No Orthopedic Surgery: Yes (LAMI) - Immunization History Td Vaccination: Yes TDAP Vaccination: No Immunization Up to Date: Yes - Suicide/Smoking/Psychosocial Hx Smoking History: Former smoker Have you smoked in the past 12 months: No Number of Cigarettes Smoked Daily: 5 If you are a former smoker, when did you quit?: 2000 Information on smoking cessation initiated: No Hx Alcohol Use: No Drug/Substance Use Hx: No Substance Use Type: None Hx Substance Use Treatment: No Review of Systems - Review of Systems Comments:: 04/11/17 13:43 GENERAL/CONSTITUTIONAL: No fever or chills. No weakness. HEAD, EYES, EARS, NOSE AND THROAT: No change in vision. No ear pain or discharge. No sore throat.- CARDIOVASCULAR: No chest pain or shortness of breath RESPIRATORY: No cough, wheezing, or hemoptysis. GASTROINTESTINAL: No nausea, vomiting, diarrhea or constipation. GENITOURINARY: +dysuria. No frequency, or change in urination. MUSCULOSKELETAL: No joint or muscle swelling or pain. No neck or back pain. SKIN: No rash NEUROLOGIC: No headache, vertigo, loss of consciousness, or change in strength/ sensation. ENDOCRINE: No increased thirst. No abnormal weight change HEMATOLOGIC/LYMPHATIC: No anemia, easy bleeding, or history of blood clots. ALLERGIC/IMMUNOLOGIC: No hives or skin allergy. *Physical Exam - Vital Signs Last Vital Signs Temp Pulse Resp BP Pulse Ox 97.7 F 74 18 114/68 97 04/11/17 13:28 04/11/17 13:28 04/11/17 13:28 04/11/17 13:28 04/11/17 13:28 - Physical Exam Comments: 04/11/17 13:43 GENERAL: Awake, alert, and fully oriented, in no acute distress HEAD: No signs of trauma, normocephalic, atraumatic EYES: PERRLA, EOMI, sclera anicteric, conjunctiva clear ENT: Hearing grossly normal, nares patent, oropharynx clear without exudates. Moist mucosa NECK: Normal ROM, supple, no lymphadenopathy, JVD, or masses LUNGS: No distress, speaks full sentences, clear to auscultation bilaterally HEART: Regular rate and rhythm, normal S1 and S2, no murmurs, rubs or gallops, peripheral pulses normal and equal bilaterally. ABDOMEN: Soft, nontender, normoactive bowel sounds. No guarding, no rebound. No masses EXTREMITIES : Normal inspection, Normal range of motion, no edema. No clubbing or cyanosis. Back: Lower thoracic, upper lumbar incision/suture site c/d/i. Absent fluctuation, erythema, induration, discharge. NEUROLOGICAL: Cranial nerves II through XII grossly intact. Normal speech, ambulates with walker no focal sensorimotor deficits SKIN: Warm, Dry, normal turgor, no rashes or lesions noted. Heart Score/ECG Review - History History: Slightly suspicious - Electrocardiogram EKG: Non specific repolarization disturbance - Age Age: >/= 65 - Risk Factors Risk Factors Heart Score: Yes Hx Hypertension Based on the list above the patient has:: 1-2 risk factors - ECG Intrepretation Rhythm: PAC(s) - Gratiot Gratiot: Left Gratiot Deviation - QRS Widened: RBBB ED Treatment Course - LABORATORY CBC & Chemistry Diagram: 04/11/17 15:20 04/11/17 15:20 Medical Decision Making - Medical Decision Making 04/11/17 14:22 71 yo M s/p lumbar thoracic laminectomy day 5 who presents with stable generalized weakness and difficulty with ambulation following recent discharge from [facility] ( 04/09/17 ). Daughter reports transient episode of unresponsive yesterday evening while in car on attempt to transfer him into house. Patient currently denies weakness, but endorses dysuria following UTI while hospitalized at OSH. Denies hematuria, flank pain, or abdominal pain. Denies fevers/chills, N/V, chest pain, SOB, cough, abdominal pain, constipation, diarrhea, sensory disturbance, DIAZ, vertigo, or syncope. Back pain has been well controlled with Oxycodone. Patient is continuing to receive Bactrim for UTI. Laminectomy performed at [facility]. Patient is hemodynamically stable and physical exam is unremarkable with benign cardiopulmonary exam, absent neruo deficits, and c/d/i suture/incision site. Differential for generalized weakness, and urinary obstruction following surgery includes UTI vs. Cauda Equina. We will also evaluate for PNA, and cardiac related pathology. ED Course: CBC, CMP, Cardiac Profile. EKG, CXR UA. Urine Cx. 04/11/17 14:29 04/11/17 15:21 Bladder Scan- 1500 ml PVR 04/11/17 15:51 CBC, CMP: Unremarkable EKG: NSR, with scattered PACs, RBBB, and absent STD, RONI, or TWI. CXR: Unremarkable 04/11/17 17:37 UA: Unremarkable 04/11/17 17:41 Will arrange transfer of patient to [facility] Dr. Marquez. *DC/Admit/Observation/Transfer Diagnosis at time of Disposition: Syncopal episodes, Acute urinary retention - Referrals Referrals: Chasity Calvillo [Primary Care Provider] - - Patient Instructions - Post Discharge Activity
--- NOTE | 2017-04-11 14:39 | PDOC ---
Attending Attestation - Resident Resident Name: AnirudhBrijeshEthan - ED Attending Attestation I have performed the following: I have examined & evaluated the patient, The case was reviewed & discussed with the resident, I agree w/resident's findings & plan, Exceptions are as noted - HPI HPI: 04/11/17 14:34 71 M with h/o recent laminectomy revision POD# 5, presenting with generalized weakness. Pt reports feeling total body weakness since leaving the hospital. Reports chills but no fevers. Daughter notes that yesterday he had an episode of diaphoresis. He denies N/V/D. Denies CP/SOB. However, yesterday daughter states that he also appeared to lose consciousness for a few minutes. She states that he suddenly went unresponsive to her voice. EMS was activated, but pt refused to come to the ER at that time. Pt endorses dysuria since he was in the hospital. He is currently on bactrim. However, he states that he has had persistent burning with urination, and he also reports the sensation of incomplete voiding. Denies flank pain. - Physicial Exam PE: 04/11/17 14:38 "GENERAL: Awake, alert, and fully oriented, in no acute distress HEAD: No signs of trauma EYES: PERRLA, EOMI, sclera anicteric, conjunctiva clear ENT: Auricles normal inspection, hearing grossly normal, nares patent, oropharynx clear without exudates. Moist mucosa NECK: Nontender, no stepoffs, Normal ROM, supple, no lymphadenopathy, JVD, or masses LUNGS: Breath sounds equal, clear to auscultation bilaterally. No wheezes, and no crackles HEART: Regular rate and rhythm, normal S1 and S2, no murmurs, rubs or gallops ABDOMEN: Soft, nontender, normoactive bowel sounds. No guarding, no rebound. No masses EXTREMITIES: Normal range of motion, no edema. No clubbing or cyanosis. No cords, erythema, or tenderness NEUROLOGICAL: Cranial nerves II through XII intact. 5/5 strength and sensation in all extremities, Normal speech, normal gait SKIN: Warm, Dry, normal turgor, no rashes or lesions noted. " - Medical Decision Making 04/11/17 14:38 71 M with generalized weakness. Pt is POD 5 from laminectomy revision but has a non-focal neuro exam. Pt does endorse dysuria and chills at home, concerning for UTI. Pt also endorses incomplete voiding, which suggests possible urinary retention. Pt also with syncopal episode yesterday. Will check EKG and cardiac enzymes. - Labs, UA - CXR - Bladder scan, lucero PRN - Admit tele for syncope work up 04/11/17 16:14 Bedside bladder scan reveals distended bladder with >900cc urine. Pt's urinary retention concerning for possible spinal cord injury. Will consult pt's neurosurgeon at [place]. Heart Score/ECG Review - ECG Impressions Comment:: 04/11/17 16:12 NSR, no RONI/STDs, no TWIs, axis wnl, intervals wnl
[2017-04-11 15:45] LABS: BASO % 0.2 % (0-2.0); EOS % 1.3 % (0-4.5); HEMATOCRIT 36.3 % (35.4-49); HEMOGLOBIN 12.5 GM/dL (11.7-16.9); LYMPH % 17.9 % (8-40); MCH 30.6 pg (25.7-33.7); MCHC 34.4 g/dl (32.0-35.9); MEAN CELL VOLUME 88.9 fl (80-96); MEAN PLT VOLUME 6.4 fl (7.5-11.1); MONO % 9.3 % (3.8-10.2); NEUT % 71.3 % (42.8-82.8); PLATELET COUNT 310 K/MM3 (134-434); RBC 4.09 M/mm3 (4.00-5.60); RDW 13.7 % (11.9-15.9); WHITE BLOOD COUNT 9.6 K/mm3 (4.0-10.0)
[2017-04-11 15:49] LABS: ALBUMIN 2.7 g/dl (3.4-5.0); ANION GAP 7 (8-16); BLOOD UREA NITROGEN 15 mg/dL (7-18); CALCIUM 8.1 mg/dL (8.5-10.1); CHLORIDE 98 mmol/L (98-107); CO2 29 mmol/L (21-32); CREATININE 0.7 mg/dL (0.7-1.3); GLUCOSE,RANDOM 90 mg/dL (74-106); SGPT/ALT 33 U/L (12-78); SODIUM 134 mmol/L (136-145)
[2017-04-11 15:50] LABS: BILIRUBIN,TOTAL 0.7 mg/dL (0.2-1.0); TOT PROT 6.1 g/dl (6.4-8.2)
[2017-04-11 16:03] LABS: ALK PHOS 98 U/L (45-117)
[2017-04-11 16:06] LABS: POTASSIUM 4.2 mmol/L (3.5-5.1); SGOT/AST 41 U/L (15-37)
[2017-04-11 16:15] LABS: INR 1.04 (0.82-1.09); PROTHROMBIN TIME (PATIENT) 11.7 SEC (9.98-11.88)
[2017-04-11 17:01] LABS: URINE APPEARANCE CLEAR; URINE BILIRUBIN NEGATIVE (NEGATIVE); URINE BLOOD 1+ (NEGATIVE); URINE COLOR STRAW; URINE GLUCOSE (UA) NEGATIVE (NEGATIVE); URINE KETONE NEGATIVE (NEGATIVE); URINE LEUK ESTERASE NEGATIVE (NEGATIVE); URINE NITRITE NEGATIVE (NEGATIVE); URINE PROTEIN NEGATIVE (NEGATIVE); URINE UROBILINOGEN NEGATIVE mg/dL (0.2-1.0)
--- NOTE | 2017-04-11 17:11 | PDOC ---
*Physical Exam - Vital Signs Last Vital Signs Temp Pulse Resp BP Pulse Ox 97.7 F 74 18 114/68 97 04/11/17 13:28 04/11/17 13:28 04/11/17 13:28 04/11/17 13:28 04/11/17 13:28 - Physical Exam Comments: 04/11/17 17:31 awake, alert, oriented heart reg lungs cta has back brace at bedside neuro intact lucero catheter intact with light yellow urine ED Treatment Course - LABORATORY CBC & Chemistry Diagram: 04/11/17 15:20 04/11/17 15:20 - ADDITIONAL ORDERS Additional order review: Laboratory Results 04/11/17 04/11/17 04/11/17 15:20 15:20 14:58 PT with INR 11.70 INR 1.04 Sodium 134 L Potassium 4.2 Chloride 98 Carbon Dioxide 29 Anion Gap 7 L BUN 15 D Creatinine 0.7 D Creat Clearance w eGFR > 60 Random Glucose 90 Calcium 8.1 L Total Bilirubin 0.7 AST 41 H D ALT 33 D Alkaline Phosphatase 98 Creatine Kinase 164 Cancelled Creatine Kinase Index 0.6 CK-MB (CK-2) 1.0 Troponin I < 0.02 Cancelled Total Protein 6.1 L Albumin 2.7 L D 04/11/17 14:58 PT with INR INR Sodium Potassium Chloride Carbon Dioxide Anion Gap BUN Creatinine Creat Clearance w eGFR Random Glucose Calcium Total Bilirubin AST ALT Alkaline Phosphatase Creatine Kinase Creatine Kinase Index CK-MB (CK-2) Troponin I Cancelled Total Protein Albumin 04/11/17 15:20 RBC 4.09 MCV 88.9 MCHC 34.4 RDW 13.7 MPV 6.4 L Neutrophils % 71.3 Lymphocytes % 17.9 D Monocytes % 9.3 Eosinophils % 1.3 Basophils % 0.2 Medical Decision Making - Medical Decision Making 04/11/17 17:09 pt signed out by the previous physician pending labs and discussion with the patients surgeon. Pt with recent revision of laminectomy by Dr. Alma Steiner at [facility]. Family and surgeon request transfer back to [facility] Discussed the case with Dr. Warner who recommends calling the transfer center at [facility] and doing an ED to ED transfer and then [facility]. Pt with a syncopal episode yesterday and urinary retention. Labs reviewed UA pending ekg and cxr reviewed call placed to the Transfer Center 04/11/17 17:32 discussed the case with the transfer center pt will be accepted under Dr. Warner in transfer ER to ER transfer notified family that per the transfer center there is a 2 day wait for a bed 04/11/17 17:34 pt has actually been accepted to the ortho floor - bed available dr. warner accepted pt transfer paperwork has been filled out and signed. *DC/Admit/Observation/Transfer Diagnosis at time of Disposition: Syncopal episodes, Acute urinary retention - Discharge Dispostion Disposition: TRANSFER ACUTE CARE/OTHER HOSP Condition at time of disposition: Fair Admit: No - Referrals Referrals: Chasity Calvillo [Primary Care Provider] - - Patient Instructions - Post Discharge Activity - Transfer to Acute Care Facility Receiving Facility: Other hosp. not listed Accepting Physician:: Dr. Alma Steiner at [facility] Transfer comment: 04/11/17 17:36 Pt will be transferred to [facility] under Dr. Alma Steiner
[2017-04-11 19:34] VITALS: BP 180/86; PULSE 86
[2017-04-11 19:36] VITALS: TEMP 97.6
--- NOTE | 2017-04-12 12:32 | EKG ---
Test Reason : Blood Pressure : / mmHG Vent. Rate : 079 BPM Atrial Rate : 079 BPM P-R Int : 166 ms QRS Dur : 092 ms QT Int : 372 ms P-R-T Axes : 035 -30 035 degrees QTc Int : 426 ms POOR DATA QUALITY, INTERPRETATION MAY BE ADVERSELY AFFECTED SINUS RHYTHM WITH PREMATURE ATRIAL COMPLEXES LEFT AXIS DEVIATION INCOMPLETE RIGHT BUNDLE BRANCH BLOCK MINIMAL VOLTAGE CRITERIA FOR LVH, MAY BE NORMAL VARIANT ABNORMAL ECG WHEN COMPARED WITH ECG OF 22-APR-2016 09:26, PREMATURE ATRIAL COMPLEXES ARE NOW PRESENT INCOMPLETE RIGHT BUNDLE BRANCH BLOCK IS NOW PRESENT Confirmed by MELODY FORREST MD ([id number]) on 04/12/2017 12:32:12 PM Referred By: Confirmed By:MELODY FORREST MD
== END 2017-04-11 19:42 | disposition short-term general hospital (02) ==
LOC: JER 13:25
PROC: 0TPB70Z Removal of Drainage Device from Bladder, Via Natural or Artificial Opening (ICD-10-PCS; principal; 2017-04-11)
DX: R55 Syncope and collapse (principal); R33.8 Other retention of urine; Z98.890 Other specified postprocedural states
CPT/HCPCS: 36415; 71045-TC; 80053; 81003; 81015; 82550; 82553; 84484; 85025; 85610; 87086; 93005; 93010; 99284-25

== ENCOUNTER 2017-05-06 10:31 | Emergency (ER) | payer OTHER, MEDICARE ==
[2017-05-06 10:49] VITALS: BP 96/64; TEMP 97.6
--- NOTE | 2017-05-06 10:52 | PDOC ---
History of Present Illness - General Stated Complaint: DEHYDRATED Time Seen by Provider: 05/06/17 10:35 History Source: Patient, EMS, Spouse Exam Limitations: No Limitations - History of Present Illness Initial Comments: This is a 71 YOM with h/o NIDDM (on Metformin), lumbar thoracic laminectomy (mid -March 2017), and recurrent UTI who p/w syncope and profuse diaphoresis at [facility] just [employer] in the setting of not having his normal breakfast this morning. The family called 911 and fire department arrived on scene first and found them in this state. They administered a vial of their glucose solution. EMS subsequently arrived on scene and measured his finger stick BG to be 91, and his symptoms were improving at that time. The patient now denies symptoms (no chest pain, SOB, abdominal pain, nausea, or other symptoms) and states he is ready to go home. The patient notes that this has happened to him three times before, and each time was with low blood sugar, in the same setting of taking his normal Metformin at night and then not eating his normal breakfast in the morning. Past History - Past Medical History Allergies/Adverse Reactions: Allergies Allergy/AdvReac Type Severity Reaction Status Date / Time No Known Allergies Allergy Verified 04/11/17 13:29 Home Medications: Ambulatory Orders Esomeprazole Mag Trihydrate [Nexium] 40 mg PO DAILY 10/28/13 Levothyroxine [Synthroid -] 100 mcg PO DAILY 10/28/13 Multivitamins [Multivit ([facility] Formulary)] 1 tab PO DAILY 10/28/13 Gabapentin 300 mg PO BID 09/28/14 Amiodarone HCl [Cordarone -] 200 mg PO Q48H 04/22/16 Atorvastatin Ca [Lipitor] 10 mg PO HS tablet 04/22/16 Metoprolol Succinate [Toprol XL -] 25 mg PO DAILY #30 tab.sr.24h 04/22/16 metFORMIN HCL [Glucophage -] 500 mg PO DAILY #30 tablet 04/22/16 Acetaminophen [Tylenol] 325 tab PO PRN PRN 04/11/17 Oxycodone HCl 5 mg PO PRN PRN 04/11/17 Anemia: Yes Asthma: No Cancer: No Cardiac Disorders: No CVA: No COPD: No CHF: No DVT: No Dementia: No Diabetes: Yes (newly diagnosed, on metformin) Dialysis: No GI Disorders: Yes (GERD) Disorders: Yes (UTI b/c urosepsis requiring ICU admission 2013) HTN: Yes Hypercholesterolemia: No Kidney Stones: No Liver Disease: No Psychiatric Problems: No Seizures: No Thyroid Disease: Yes (hypo.) Lung CA: No - Surgical History Abdominal Surgery: Yes Appendectomy: No Cardiac Surgery: No Cholecystectomy: Yes (1975) Gastric Stapling: No GI Surgery: No Lung Surgery: No Neurologic Surgery: No Orthopedic Surgery: Yes (LAMI) - Immunization History Td Vaccination: Yes TDAP Vaccination: No Immunization Up to Date: Yes - Suicide/Smoking/Psychosocial Hx Smoking History: Former smoker Have you smoked in the past 12 months: No Number of Cigarettes Smoked Daily: 5 If you are a former smoker, when did you quit?: 2000 Hx Alcohol Use: No Drug/Substance Use Hx: No Substance Use Type: None Hx Substance Use Treatment: No Review of Systems - Review of Systems Able to Perform ROS?: Yes Constitutional: Yes: Diaphoresis (resolved). No: Chills, Fever, Unexplained wgt Loss HEENTM: No: Nose Congestion, Throat Pain Respiratory: No: Cough, Shortness of Breath Cardiac (ROS): Yes: Lightheadedness (resolved), Other (pre-syncope (resolved)). No: Chest Pain, Palpitations, Syncope ABD/GI: No: Constipated, Diarrhea, Nausea, Vomiting : No: Burning, Dysuria Musculoskeletal: No: Back Pain, Neck Pain Integumentary: No: Bruising, Rash Neurological: No: Headache, Numbness, Tingling, Weakness, Dizziness Endocrine: No: Unexplained Weight Gain, Unexplained Weight Loss *Physical Exam - Physical Exam General Appearance: Yes: Nourished, Appropriately Dressed, Other (pleasant older adult male in no distress accompanied by his at bedside who is supportive, answering questions appropriately). No: Apparent Distress HEENT: positive: EOMI, Normal Voice, Hearing Grossly Normal. negative: Scleral Icterus (R), Scleral Icterus (L), Nasal Congestion Neck: positive: Trachea midline, Supple. negative: Tender, Rigid Respiratory/Chest: positive: Lungs Clear, Normal Breath Sounds. negative: Respiratory Distress, Crackles, Rhonchi, Stridor, Wheezing Cardiovascular: positive: Regular Rhythm, S1, S2, Bradycardia. negative: Edema , JVD, Murmur Gastrointestinal/Abdominal: positive: Normal Bowel Sounds, Soft. negative: Tender, Organomegaly, Pulsatile Mass, Guarding Musculoskeletal: positive: Normal Inspection. negative: Decreased Range of Motion, Vertebral Tenderness Extremity: positive: Normal Capillary Refill, Normal Inspection, Normal Range of Motion. negative: Tender, Cyanosis Integumentary: positive: Normal Color, Dry, Warm. negative: Erythema, Rash, Bruising Neurologic: positive: winder tender II-XII NML intact (grossly), Fully Oriented, Alert, Normal Mood/Affect, Normal Response, Motor Strength 5/5. negative: Facial Droop , Confused, Disoriented ED Treatment Course - LABORATORY CBC & Chemistry Diagram: 05/06/17 11:00 05/06/17 11:00 Medical Decision Making - Medical Decision Making 71 YOM with NIDDM on metformin who p/w apparent hypoglycemia with AMS, pre- syncope, diaphoresis. Did not eat breakfast this morning, which has cause hypoglycemia in the past for him. On exam VS wnl, normal exam, patient wants to leave. Ordered is CBCD CMP finger stick BG CXR UA Cx EKG. 05/06/17 12:36 Blood labs wnl, still awaiting urine. EKG and CXR without acute changes. Patient wants to leave now, will not wait for results of UA. Daughter's phone number is best contact for any abnormal results ([phone]). He is counseled on dangers of hypoglycemia including coma and . He is counseled to eat breakfast and every meal regularly, check BG, f/u with PCP. Return precautions discussed. *DC/Admit/Observation/Transfer Diagnosis at time of Disposition: Hypoglycemia Altered mental state Qualifiers: Altered mental status type: unspecified Qualified Code(s): R41.82 - Altered mental status, unspecified Diabetes mellitus Qualifiers: Diabetes mellitus type: type 2 Diabetes mellitus complication status: with unspecified complications Diabetes mellitus detention insulin use: without detention use Qualified Code(s): E11.8 - Type 2 diabetes mellitus with unspecified complications - Discharge Dispostion Disposition: HOME Condition at time of disposition: Stable Admit: No - Referrals Referrals: Chasity Calvillo [Primary Care Provider] - - Patient Instructions Additional Instructions: Díaz visto en la radha de emergencias por un nivel muy bajo de azucar. Hicimos unos laboratorios de jody, edita electrocardiograma, y edita placa del pecho, y ahora todo parece normal. Todavia tenemos que terminar las pruebas de la orina, chloe te vamos a llamar si los resultados son abnormales. Sofya marcus metformin wong se dice en la receta, y por favor come marcus desayuno cada adam. Regrese a la radha de emergencias si tiene alguna sintoma nueva o que empeora. - Post Discharge Activity
[2017-05-06 10:53] VITALS: BMI 25.5
[2017-05-06 11:00] VITALS: PULSE 68
[2017-05-06 11:19] LABS: BASO % 0.5 % (0-2.0); EOS % 0.9 % (0-4.5); HEMATOCRIT 33.2 % (35.4-49); LYMPH % 14.6 % (8-40); MCH 28.9 pg (25.7-33.7); MCHC 33.1 g/dl (32.0-35.9); MEAN CELL VOLUME 87.1 fl (80-96); MEAN PLT VOLUME 5.8 fl (7.5-11.1); MONO % 4.9 % (3.8-10.2); NEUT % 79.1 % (42.8-82.8); PLATELET COUNT 336 K/MM3 (134-434); RBC 3.81 M/mm3 (4.00-5.60); RDW 13.2 % (11.9-15.9); WHITE BLOOD COUNT 7.5 K/mm3 (4.0-10.0)
[2017-05-06] MEDS ORDERED: INSULIN (NOVOLOG MIX 70/30) 100 UNITS/ML MDV SQ ONE (11:32)
[2017-05-06 11:46] LABS: ALBUMIN 3.1 g/dl (3.4-5.0); ANION GAP 8 (8-16); BLOOD UREA NITROGEN 20 mg/dL (7-18); CALCIUM 8.4 mg/dL (8.5-10.1); CHLORIDE 107 mmol/L (98-107); CO2 27 mmol/L (21-32); CREATININE 1.1 mg/dL (0.7-1.3); GLUCOSE,RANDOM 167 mg/dL (74-106); POTASSIUM 3.9 mmol/L (3.5-5.1); SGOT/AST 14 U/L (15-37); SGPT/ALT 18 U/L (12-78); SODIUM 142 mmol/L (136-145)
[2017-05-06 11:50] LABS: ALK PHOS 101 U/L (45-117); BILIRUBIN,TOTAL 0.6 mg/dL (0.2-1.0); TOT PROT 6.1 g/dl (6.4-8.2)
--- NOTE | 2017-05-06 16:51 | EKG ---
Test Reason : Blood Pressure : / mmHG Vent. Rate : 058 BPM Atrial Rate : 058 BPM P-R Int : 182 ms QRS Dur : 092 ms QT Int : 444 ms P-R-T Axes : 012 -28 002 degrees QTc Int : 435 ms SINUS BRADYCARDIA MINIMAL VOLTAGE CRITERIA FOR LVH, MAY BE NORMAL VARIANT BORDERLINE ECG WHEN COMPARED WITH ECG OF 11-APR-2017 15:30, PREMATURE ATRIAL COMPLEXES ARE NO LONGER PRESENT INCOMPLETE RIGHT BUNDLE BRANCH BLOCK IS NO LONGER PRESENT Confirmed by CHAPINCITO BOBO MD ([id number]) on 05/06/2017 4:51:27 PM Referred By: Confirmed By:CHAPINCITO BOBO MD
== END 2017-05-06 12:44 | disposition home or self-care (01) ==
LOC: JER 10:31
DX: E11.649 Type 2 diabetes mellitus with hypoglycemia without coma (principal); Z79.84 Long term (current) use of oral hypoglycemic drugs
CPT/HCPCS: 36415; 71046-TC-FY; 80053; 82550; 82962; 84484; 85025; 93005; 93010; 99285-25

== ENCOUNTER 2017-10-20 10:51 | Emergency (ER) | payer OTHER, MEDICARE ==
--- NOTE | 2017-10-20 10:56 | PDOC ---
History of Present Illness - General Stated Complaint: DIABETIC EMERGENCY Time Seen by Provider: 10/20/17 10:56 History Source: Patient, EMS, Family (Son) Exam Limitations: No Limitations - History of Present Illness Initial Comments: P, with PMH of HTN, HLD, DM (metformin use only), laminectomy (2018) and frequent UTI, presents to the ER via EMS for hypotension, hypoglycemia, altered mental status, and syncope. EMS and son state that 30 minutes before presentation, the pt was asking to go to the bathroom, and began to be weak and lethargic. The son administered 1 packet of oral glucose paste, and the pt had 2 episodes of NBNB vomiting before EMS arrived. Blood glucose on EMS arrival was 113 and the pt was oriented and less lethargic at that time. In the ambulance, the pt vitals dropped to 70/50 and heart rate into the 40s. EMS administered 4 mg zofran for vomiting, 250 cc of NS IVF, and 0.5 atropine. The BP improved back to 110s/90s, HR in 50s, ECG showed sinus bradycardia, and blood glucose was 138. On arrival, the pt was alert and oriented and able to provide review of systems. He stated he also had 3 episodes of non-bloody, loose brown stool last night, and felt nauseous this morning after eating breakfast (toast and avocado) . He denies any recent fevers/chills, chest pain, shortness of breath, palpitations, change in vision, abdominal pain, dysuria, hematuria, or leg swelling. The son states the pts behavior has been normal, no facial droop, no ataxia. 10/20/17 14:09 Past History - Travel Traveled outside of the country in the last 30 days: No Close contact w/someone who was outside of country & ill: No - Past Medical History Allergies/Adverse Reactions: Allergies Allergy/AdvReac Type Severity Reaction Status Date / Time No Known Allergies Allergy Verified 10/20/17 11:16 Home Medications: Ambulatory Orders Esomeprazole Mag Trihydrate [Nexium] 40 mg PO DAILY 10/28/13 Levothyroxine [Synthroid -] 100 mcg PO DAILY 10/28/13 Multivitamins [Multivit ([facility] Formulary)] 1 tab PO DAILY 10/28/13 Gabapentin 300 mg PO BID 09/28/14 Amiodarone HCl [Cordarone -] 200 mg PO Q48H 04/22/16 Atorvastatin Ca [Lipitor] 10 mg PO HS tablet 04/22/16 Metoprolol Succinate [Toprol XL -] 25 mg PO DAILY #30 tab.sr.24h 04/22/16 metFORMIN HCL [Glucophage -] 500 mg PO DAILY #30 tablet 04/22/16 Oxycodone HCl 5 mg PO PRN PRN 04/11/17 Fludrocortisone Acetate 0 mg PO ASDIR 10/20/17 Sulfamethoxazole/Trimethoprim [Bactrim Ds -] 1 tab PO DAILY #5 tablet 10/20/17 Anemia: Yes Asthma: No Cancer: No Cardiac Disorders: No CVA: No COPD: No CHF: No DVT: No Dementia: No Diabetes: Yes (newly diagnosed, on metformin) Dialysis: No GI Disorders: Yes (GERD) Disorders: Yes (UTI b/c urosepsis requiring ICU admission 2013) HTN: Yes Hypercholesterolemia: No Kidney Stones: No Liver Disease: No Psychiatric Problems: No Seizures: No Thyroid Disease: Yes (hypo.) Lung CA: No - Surgical History Abdominal Surgery: Yes Appendectomy: No Cardiac Surgery: No Cholecystectomy: Yes (1975) Gastric Stapling: No GI Surgery: No Lung Surgery: No Neurologic Surgery: No Orthopedic Surgery: Yes (LAMI) - Immunization History Td Vaccination: Yes TDAP Vaccination: No Immunization Up to Date: Yes - Suicide/Smoking/Psychosocial Hx Smoking History: Former smoker Have you smoked in the past 12 months: No Number of Cigarettes Smoked Daily: 5 If you are a former smoker, when did you quit?: 2000 Hx Alcohol Use: No Drug/Substance Use Hx: No Substance Use Type: None Hx Substance Use Treatment: No Review of Systems - Review of Systems Able to Perform ROS?: Yes Is the patient limited Amharic proficient: No Constitutional: Yes: Weakness. No: Chills, Diaphoresis, Fever, Loss of Appetite , Weight Stable HEENTM: No: Blurred Vision, Double Vision, Throat Pain, Difficulty Swallowing Respiratory: No: Cough, Orthopnea, Shortness of Breath Cardiac (ROS): Yes: Syncope. No: Chest Pain, Edema, Irregular Heart Rate, Lightheadedness, Palpitations, Chest Tightness ABD/GI: Yes: Diarrhea, Nausea, Vomiting, Tarry Stools ("dark stool" as pt takes iron supplements.). No: Abd. Pain w/ defecation, Blood Streaked Bowels, Constipated, Poor Appetite, Poor Fluid Intake, Rectal Bleeding, Abdominal cramping : No: Burning, Dysuria, Frequency, Flank Pain, Hematuria, Incontinence, Pain, Urgency Musculoskeletal: No: Back Pain, Joint Pain, Muscle Weakness Integumentary: No: Bruising, Rash, Sweating Neurological: Yes: Weakness (weakness this morning before syncopal episode.). No: Headache, Numbness, Paresthesia, Seizure, Unsteady Gait, Dizziness Psychiatric: No: Sleep Pattern Change, Change in Appetite Endocrine: Yes: Increased Urine (increased volume and frequency since diagnosis of DM). No: Change in Weight Hematologic/Lymphatic: No: Anemia, Blood Clots, Easy Bleeding All Other Systems: Reviewed and Negative *Physical Exam - Physical Exam General Appearance: Yes: Nourished, Appropriately Dressed. No: Apparent Distress HEENT: positive: EOMI, JEREMIAS, Normal ENT Inspection, Normal Voice, Symmetrical, Pharynx Normal, Hearing Grossly Normal. negative: Photophobia, Tonsillar Exudate, Tonsillar Erythema, Thrush Neck: positive: Trachea midline, Normal Thyroid, Supple. negative: Tender, Rigid, Lymphadenopathy (R), Lymphadenopathy (L) Respiratory/Chest: positive: Lungs Clear, Normal Breath Sounds. negative: Chest Tender, Respiratory Distress, Accessory Muscle Use Cardiovascular: positive: Regular Rhythm, S1, S2, Bradycardia (rate 50s on arrival). negative: Regular Rate, Edema, JVD, Murmur, Irregularly Irregular, Irregular Vascular Pulses: Carotid (R): 4+, Carotid (L): 4+ Gastrointestinal/Abdominal: positive: Normal Bowel Sounds, Flat, Soft. negative : Tender, Organomegaly, Pulsatile Mass, Guarding, Rebound Lymphatic: negative: Adenopathy, Tenderness Musculoskeletal: positive: Normal Inspection. negative: CVA Tenderness, Decreased Range of Motion Extremity: positive: Normal Capillary Refill, Normal Inspection, Normal Range of Motion, Pelvis Stable. negative: Tender Integumentary: positive: Normal Color, Dry, Warm. 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 negative: EOM Palsy, Facial Droop, Confused, Disoriented, Depressed Affect Heart Score/ECG Review - History History: Moderately suspicious (syncopal episode with vomiting, no chest pain) - Electrocardiogram EKG: Normal - Age Age: >/= 65 - Risk Factors Risk Factors Heart Score: Yes Hx Hypercholesterolemia, Yes Hx Hypertension, Yes Hx Diabetes Based on the list above the patient has:: >/=3 risk factors or Hx atherosclerotic disease - Troponin Troponin: </= normal limit - Score Heart Score - Total: 5 - ECG Intrepretation Rhythm: Regular Rhythm - Martin Martin: Normal - P and MA Prominent R with upright T in V1 (true posterior NV): No Delta Wave(s) Present: No WPW: No Comment:: upright T wave in V1, not larger than V6. 10/20/17 14:36 - QRS Poor R Wave Progression: No Q Wave Present: No - ST and T Early Repolarization: No Non Specific ST-T Wave changes: Yes Flattened T Waves: No Prolonged Q-T Interval: Yes - ECG Impressions Normal ECG: No Non-specific ST Elevation: No Ischemic Changes: No (upright T in V1, not larger than V6) Bradycardia: Yes (rate 50) Torsades velma Pointes: No WPW: No ED Treatment Course - LABORATORY CBC & Chemistry Diagram: 10/20/17 11:33 10/20/17 11:33 - RADIOLOGY Radiology Studies Ordered: chest x-ray, normal. 10/20/17 14:38 Medical Decision Making - Medical Decision Making Received report from EMS, pt seen at bedside, and was seen by Dr. Cornejo as well. Pt vitals and glucose improved (BP 131/79, HR 58-62, 97% O2). First ECG showed possible LVH and unspecific T wave abnormalities (T waves elevated in V1) , will repeat ECG. Working-up ACS versus infectious causes as pt takes metformin but not insulin. Pending lab results/troponin, chest x-ray, repeat ECG. 1L NS provided. 10/20/17 12:01 WBC 12. UA: trace leuk esterase, 12 WBC. BUN 22 (prior 20). BNP 288 and troponin negative, no prior BNP for comparison. Chest x-ray negative. ECG continued to show possible LVH and unspecific T wave changes (V1). Pt nausea and vitals have improved, and he has not vomited since visiting the department. Possible cardiac origin versus gastroenteritis. Offered to have pt stay for admission, but pt refused and would like to go home. His son lives with him and would be able to contact EMS if further issues arrive. He verbalized understanding of risks (arrhythmia, hypotension, ). Gave dose of ceftriaxone in hospital, will send Bactrim to pharmacy for UTI. 10/20/17 13:30 Pt signed AMA form and prescription sent to pharmacy. 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 insulin use: without assisted use Diabetes mellitus complication status: with hypoglycemia Diabetes mellitus complication detail: without coma Qualified Code(s): E11.649 - Type 2 diabetes mellitus with hypoglycemia without coma HTN (hypertension) Qualifiers: Hypertension type: unspecified Qualified Code(s): I10 - Essential (primary) hypertension - Discharge Dispostion Disposition: AGAINST MEDICAL ADVICE Condition at time of disposition: Improved Decision to Admit order: No - Prescriptions Prescriptions: Sulfamethoxazole/Trimethoprim [Bactrim Ds -] 1 tab PO DAILY #5 tablet - Referrals Referrals: Dharmesh Desir MD [Non Staff, Medical] - Chasity Calvillo [Non Staff, Medical] - - Patient Instructions Printed Discharge Instructions: DI for Syncope in Adults (Fainting), DI for Hypoglycemia Additional Instructions: Please follow-up with your primary care provider within the next 2 days and your investor relations specialist appointment with Dr. Desir on Sunday. You were seen today for your low blood sugar and disorientation. You agreed to the risks of leaving the hospital today. Please return to the ER for any worsening confusion or disorientation, fainting, chest pain or shortness of breath, changes to your heart rate, low blood sugar, or any other concerns. - Post Discharge Activity
[2017-10-20 11:16] VITALS: BMI 59.0
[2017-10-20] MEDS ORDERED: ATROPINE SULFATE 1 MG/10 ML DISP.SYRIN ONE (11:21)
[2017-10-20] MEDS ORDERED: ONDANSETRON 4 MG/2 ML VIAL ONE (11:21)
[2017-10-20 11:37] LABS: BASO % 0.2 % (0-2.0); EOS % 0.2 % (0-4.5); HEMATOCRIT 44.8 % (35.4-49); HEMOGLOBIN 15.1 GM/dL (11.7-16.9); MCHC 33.6 g/dl (32.0-35.9); MEAN CELL VOLUME 86.1 fl (80-96); MEAN PLT VOLUME 6.3 fl (7.5-11.1); MONO % 5.2 % (3.8-10.2); NEUT % 89.4 % (42.8-82.8); PLATELET COUNT 247 K/MM3 (134-434); RBC 5.21 M/mm3 (4.00-5.60); RDW 16.9 % (11.9-15.9)
[2017-10-20 12:08] LABS: ALBUMIN 3.5 g/dl (3.4-5.0); ANION GAP 6 (8-16); BLOOD UREA NITROGEN 22 mg/dL (7-18); CALCIUM 8.6 mg/dL (8.5-10.1); CHLORIDE 106 mmol/L (98-107); CO2 29 mmol/L (21-32); CREATININE 1.1 mg/dL (0.7-1.3); GLUCOSE,RANDOM 132 mg/dL (74-106); LIPASE 130 U/L (73-393); MAGNESIUM 2.1 mg/dL (1.8-2.4); POTASSIUM 4.2 mmol/L (3.5-5.1); SGOT/AST 32 U/L (15-37); SGPT/ALT 37 U/L (12-78); SODIUM 141 mmol/L (136-145)
[2017-10-20 12:12] LABS: ALK PHOS 110 U/L (45-117); BILIRUBIN,TOTAL 0.8 mg/dL (0.2-1.0); TOT PROT 7.3 g/dl (6.4-8.2)
[2017-10-20 12:13] LABS: INR 1.08 (0.82-1.09); PROTHROMBIN TIME (PATIENT) 12.2 SEC (9.7-13.0)
--- NOTE | 2017-10-20 12:28 | PDOC ---
Attending Attestation - Resident Resident Name: Ivy Mayorga - ED Attending Attestation I have performed the following: I have examined & evaluated the patient, The case was reviewed & discussed with the resident, I agree w/resident's findings & plan, Exceptions are as noted - HPI HPI: 10/20/17 12:11 The patient is a 72 year old male with a significant PMH of recurrent UTIs, HTN , HLD, and DM on metformin presenting s/p syncopal episode x2. The patients son is at bedside and states the patient had a bowel movement this morning and subsequently sat down and slumped over his chair on the kitchen table. The son also reports the patient had limited responsiveness. His sons states he was passed out for less than a minute, then he gave him oral glucose after he came to. As per EMS, patient was cold, pale, and weak upon arrival. Per EMS, the patients glucose was 113 with a HR of 62 and blood pressure of 110/90. During transport, pt had an episode of emesis and was bradycardic to 40s per EMS and was given atropine 0.5mg and 4mg zofran. The patients blood pressure also dropped to 70/30 en route and he was administered 250 of normal saline. Patient s glucose in the ER is now 142. Patient denies recent illness other than 1 episode of diarrhea this morning. Patient has been urinating frequently but states this is normal for him. The patient denies chest pain, shortness of breath, palpitations, headache focal weakness/numbness, and dizziness. Denies fever, chills, nausea, vomit, diarrhea and constipation. Denies dysuria, urgency and hematuria. Allergies: NKA Past surgical history: abdominal surgery, cholecystectomy, LAMI Social history: No reported alcohol or drug use. Former smoker. - Physicial Exam PE: 10/20/17 12:42 GENERAL: Awake, alert, and fully oriented, in no acute distress HEAD: No signs of trauma EYES: PERRLA, EOMI, sclera anicteric, conjunctiva clear ENT: Auricles normal inspection, hearing grossly normal, nares patent, oropharynx clear without exudates. Moist mucosa NECK: Normal ROM, supple, no lymphadenopathy, JVD, or masses LUNGS: Breath sounds equal, clear to auscultation bilaterally. No wheezes, and no crackles HEART: Regular rate and rhythm, normal S1 and S2, no murmurs, rubs or gallops ABDOMEN: Soft, nontender, normoactive bowel sounds. No guarding, no rebound. No masses EXTREMITIES: Normal range of motion, no edema. No clubbing or cyanosis. No cords, erythema, or tenderness NEUROLOGICAL: Normal speech, cranial nerves intact, negative pronator drift, 5/ 5 strength in all 4 extremities, normal sensation to light touch in all 4 extremities, normal cerebellar exam, normal gait, normal reflexes and tone SKIN: Warm, Dry, normal turgor, no rashes or lesions noted. - Medical Decision Making 10/20/17 12:59 72yo M with hx HTN, HL, DM presents to the ED with 2 episodes of syncope. Vitals in ED with bradycardia, otherwise wnl. DDx includes cardiac arrhythmia vs vasovagal syncope. EKG with 1mm roni in V1, but no significant change compared to prior and pt has no c/o CP. Will check labs, keep on cardiac catheterization technologist and admit obs 10/20/17 13:31 Labs wnl, trop neg. CXR clear UA with 14 whites and trace LE, given dose ctx Pt declining to stay for tele obs, does not want to stay in the hospital as he feels he is fine and has had episodes of syncope in the past without issue. Pt also has pmd appt this week. The patient is clinically sober, free from distracting injury, appears to have intact insight and judgment and reason and in my opinion has the capacity to make decisions. The patient presents with 2 episodes of syncope. I have explained that I am concerned that this may represent a cardiac arrhythmia or heart attack; he has verbalized an understanding of my concerns. I have told the patient that while their labs were normal, he could still have a heart arrhythmia or heart attack. I have discussed the need for admission to get more information about potential causes of the patients syncope. I have told the patient that if they leave and have recurrent syncope, they could get much worse , could become critically ill, and could possibly become disabled or . I have asked them to stay in the hospital for serial troponin exams. I have discussed these concerns with the patients son who is at the bedside and he is unable to convince him to stay for further evaluation. The patient is not willing to undergo an observation/admission. He is unwilling to stay overnight for monitoring. He is refusing any further care and is leaving against medical advice. I am unable to convince the patient to stay, I have asked them to return as soon as possible to complete their evaluation. I have answered all their questions. Heart Score/ECG Review #1 10/20/17 12:42 Twelve-lead EKG was performed and reviewed by me. Sinus bradycardia, rate 55. Left axis deviation. 1mm RONI in V1. Sub 1mm STD V5-V6. When compared to EKG from 04/11/17, no significant change #2 10/20/17 12:46 Twelve-lead EKG was performed and reviewed by me. Sinus bradycardia, rate 53. Left axis deviation. sub1mm RONI in V1. Sub 1mm STD V5-V6. When compared to EKG from earlier today, no significant change
[2017-10-20 12:39] LABS: URINE APPEARANCE CLOUDY; URINE BILIRUBIN NEGATIVE (<2.0 mg/dL); URINE COLOR AMBER; URINE GLUCOSE (UA) NEGATIVE (NEGATIVE); URINE KETONE NEGATIVE (NEGATIVE); URINE LEUK ESTERASE TRACE (NEGATIVE); URINE NITRITE NEGATIVE (NEGATIVE); URINE UROBILINOGEN NEGATIVE mg/dL (0.2-1.0)
[2017-10-20 12:41] VITALS: PULSE 58
[2017-10-20 12:44] LABS: URINE PROTEIN 1+ (NEGATIVE)
[2017-10-20 12:47] LABS: URINE HYALINE CAST 104 /lpf; URINE MUCUS RARE
[2017-10-20] MEDS ORDERED: CEFTRIAXONE 1,000 MG in DEXTROSE 5%-WATER - 50 ML IVPB ONE (12:57)
[2017-10-20] MEDS ORDERED: CEFTRIAXONE 1 GM/50 ML BAG ONE (13:20)
[2017-10-20 14:15] VITALS: BP 137/64; TEMP 98.1
--- NOTE | 2017-10-22 10:35 | EKG ---
Test Reason : Blood Pressure : / mmHG Vent. Rate : 055 BPM Atrial Rate : 055 BPM P-R Int : 172 ms QRS Dur : 096 ms QT Int : 482 ms P-R-T Axes : 005 -45 030 degrees QTc Int : 461 ms SINUS BRADYCARDIA LEFT ANTERIOR FASCICULAR BLOCK MODERATE VOLTAGE CRITERIA FOR LVH, MAY BE NORMAL VARIANT NONSPECIFIC ST ABNORMALITY ABNORMAL ECG WHEN COMPARED WITH ECG OF 06-MAY-2017 10:55, ST NOW DEPRESSED IN LATERAL LEADS Confirmed by KAREN MOREIRA MD ([id number]) on 10/22/2017 10:35:29 AM Referred By: Confirmed By:KAREN MOREIRA MD
--- NOTE | 2017-10-23 17:05 | EKG ---
Test Reason : Blood Pressure : / mmHG Vent. Rate : 053 BPM Atrial Rate : 053 BPM P-R Int : 186 ms QRS Dur : 112 ms QT Int : 492 ms P-R-T Axes : 012 -45 025 degrees QTc Int : 461 ms SINUS BRADYCARDIA LEFT ANTERIOR FASCICULAR BLOCK MODERATE VOLTAGE CRITERIA FOR LVH, MAY BE NORMAL VARIANT ABNORMAL ECG Confirmed by MD KADI, BEBA ([id number]) on 10/23/2017 5:04:44 PM Referred By: Confirmed By:BEBA WALLIS MD
== END 2017-10-20 14:05 | disposition left against medical advice (07) ==
LOC: JER 10:51
DX: N39.0 Urinary tract infection, site not specified (principal); E11.649 Type 2 diabetes mellitus with hypoglycemia without coma; Z79.84 Long term (current) use of oral hypoglycemic drugs; I95.89 Other hypotension; I10 Essential (primary) hypertension; E78.5 Hyperlipidemia, unspecified; E03.9 Hypothyroidism, unspecified; K21.9 Gastro-esophageal reflux disease without esophagitis; Z90.49 Acquired absence of other specified parts of digestive tract
CPT/HCPCS: 36415; 71045-TC-FY; 80053; 81003; 81015; 82962; 83605; 83690; 83735; 83880; 84484; 85025; 85610; 85730; 87086; 93005; 93010; 96365; 99285-25

== ENCOUNTER 2018-02-24 10:17 | Emergency (ER) | payer OTHER, MEDICARE ==
--- NOTE | 2018-02-24 10:21 | PDOC ---
History of Present Illness - General Chief Complaint: Syncope/Near Syncope Stated Complaint: SYNCOPE Time Seen by Provider: 02/24/18 10:21 - History of Present Illness Initial Comments: 02/24/18 10:34 The patient is a 72 year old male with a history of HTN, HLD, DM, UTIs who presents for evaluation following a syncopal episode. The patient reports that he was in [place] when he felt very lightheaded and "sweaty" and reportedly syncopized for 1-2 minutes. He was noted to be hypotensive and bradycardic when EMS arrived on scene and improved after iv fluids were initiated. He notes that he had a similar episode 6 months ago when he had a UTI. He otherwise denies fevers, chills, SOB, chest pain, nausea, vomiting, abdominal pain, or changes with urination or bowel movements. Past History - Past Medical History Allergies/Adverse Reactions: Allergies Allergy/AdvReac Type Severity Reaction Status Date / Time No Known Allergies Allergy Verified 02/24/18 10:25 Home Medications: Ambulatory Orders Levothyroxine [Synthroid -] 112 mcg PO DAILY 10/28/13 Multivitamins [Multivit ([facility] Formulary)] 1 tab PO DAILY 10/28/13 Gabapentin 300 mg PO BID 09/28/14 Amiodarone HCl [Cordarone -] 200 mg PO Q48H 04/22/16 Atorvastatin Ca [Lipitor] 10 mg PO HS tablet 04/22/16 metFORMIN HCL [Glucophage -] 500 mg PO DAILY #30 tablet 04/22/16 Metoprolol Succinate [Toprol XL -] 50 mg PO DAILY 02/24/18 Anemia: Yes Asthma: No Cancer: No Cardiac Disorders: No CVA: No COPD: No CHF: No DVT: No Dementia: No Diabetes: Yes Dialysis: No GI Disorders: Yes (GERD) Disorders: Yes (UTI b/c urosepsis requiring ICU admission 2013) HTN: Yes Hypercholesterolemia: Yes Kidney Stones: No Liver Disease: No Psychiatric Problems: No Seizures: No Thyroid Disease: Yes (hypo.) Lung CA: No - Surgical History Abdominal Surgery: Yes Appendectomy: No Cardiac Surgery: No Cholecystectomy: Yes (1975) Gastric Stapling: No GI Surgery: No Lung Surgery: No Neurologic Surgery: No Orthopedic Surgery: Yes (LAMI) - Immunization History Td Vaccination: Yes TDAP Vaccination: No Immunization Up to Date: Yes - Suicide/Smoking/Psychosocial Hx Smoking History: Former smoker Have you smoked in the past 12 months: No Number of Cigarettes Smoked Daily: 5 If you are a former smoker, when did you quit?: 2000 Hx Alcohol Use: No Drug/Substance Use Hx: No Substance Use Type: None Hx Substance Use Treatment: No Review of Systems - Review of Systems Comments:: 02/24/18 10:36 Constitutional: No fevers, chills, fatigue, malaise HEENT: No Rhinorrhea, nasal congestion, visual changes Cardiovascular: Syncope. No chest pain, palpitations, lightheadedness Respiratory: No Cough, SOB, Hemoptysis, Gastrointestinal: No Abdominal pain, Nausea, Vomiting, Constipation, Diarrhea, Melena Genitourinary: No Dysuria, Frequency, Urgency, Hesitancy, Hematuria, Flank pain Musculoskeletal: No Myalgia, arthralgia Skin: No rashes, itching, bruising, pallor Neurologic: No Headache, Dizziness, Numbness, Weakness, or Tingling Psychiatric: No Hallucinations. No SI or HI *Physical Exam - Physical Exam Comments: 02/24/18 10:36 General Appearance: Nourished. No Apparent Distress HEENT: EOMI, JEREMIAS. No Pharyngeal Erythema, Tonsillar Exudate, Tonsillar Erythema Neck: No Cervical Lymphadenopathy Respiratory/Chest: Lungs Clear, Normal Breath Sounds. No Crackles, Rales, Rhonchi, Wheezing Cardiovascular: Regular Rhythm, Regular Rate. No Murmur, Gallops, Rubs Gastrointestinal/Abdominal: Normal Bowel Sounds, Soft. 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 ED Treatment Course - LABORATORY CBC & Chemistry Diagram: 02/24/18 10:30 02/24/18 10:30 Medical Decision Making - Medical Decision Making 02/24/18 10:37 The patient is a 72 year old male with a history of HTN, HLD, DM, UTIs who presents for evaluation following a syncopal episode. Differential includes but is not limited to: ACS, Arrhythmia, UTI, Infectious, Metabolic Derangement. Given the patient's history and physical exam, we will obtain a cbc, cmp, troponin, ekg, chest plain film, ua to evaluate further. We will treat with iv fluids and continue to monitor and reassess while here in the ED. 02/24/18 12:53 CBC, cmp, ua, troponin are unremarkable. Chest plain film is unremarkable. Given the patient's history and results, we believe he requires admission for further management. The patient however voiced that he wished to leave AMA. The patient insists on leaving the emergency dept and is signing out against medical advice. The patient understands the risks and complications that may result from the refusal of medical care and admission which includes but is not limited to and permanent disability. The patient has the mental capacity of understanding the risks of refusing care and is capable of making an informed decision. The patient was instructed to return to the emergency department should his condition worsen. The patient signed the Against Medical Advice form and will follow up with his milk tester Dr. Desir Tomorrow. *DC/Admit/Observation/Transfer Diagnosis at time of Disposition: Syncopal episodes Qualifiers: Syncope type: unspecified Qualified Code(s): R55 - Syncope and collapse - Discharge Dispostion Disposition: AGAINST MEDICAL ADVICE Condition at time of disposition: Stable - Referrals Referrals: Chasity Calvillo [Primary Care Provider] - - Patient Instructions Printed Discharge Instructions: DI for Syncope in Adults (Fainting) Additional Instructions: Please return to the ER if you experience concerning or worsening symptoms including worsening difficulty breathing, weakness, or chest pain. Your lab results were normal here in the ER. Please call to schedule a follow up appointment with your primary care provider within 2-3 days to discuss your ER visit and further management of your symptoms. You must follow up with your milk tester TOMORROW to discuss your ER visit and further management of your symptoms. - Post Discharge Activity
[2018-02-24 10:25] VITALS: BMI 17.0
[2018-02-24] MEDS ORDERED: SODIUM CHLORIDE 1,000 ML IV STA (10:31)
[2018-02-24 10:48] LABS: BASO % 0.2 % (0-2.0); EOS % 0.8 % (0-4.5); HEMATOCRIT 40.7 % (35.4-49); HEMOGLOBIN 14.4 GM/dL (11.7-16.9); MCH 31.6 pg (25.7-33.7); MCHC 35.4 g/dl (32.0-35.9); MEAN CELL VOLUME 89.2 fl (80-96); MONO % 5.3 % (3.8-10.2); NEUT % 74.7 % (42.8-82.8); PLATELET COUNT 246 K/MM3 (134-434); RBC 4.56 M/mm3 (4.00-5.60); RDW 12.9 % (11.9-15.9); WHITE BLOOD COUNT 7.6 K/mm3 (4.0-10.0)
[2018-02-24 11:01] VITALS: TEMP 95
[2018-02-24 11:35] LABS: ALBUMIN 3.5 g/dl (3.4-5.0); ALK PHOS 108 U/L (45-117); ANION GAP 8 MMOL/L (8-16); BILIRUBIN,TOTAL 0.9 mg/dL (0.2-1); BLOOD UREA NITROGEN 21 mg/dL (7-18); CALCIUM 8.4 mg/dL (8.5-10.1); CHLORIDE 107 mmol/L (98-107); CO2 25 mmol/L (21-32); CREATININE 1.1 mg/dL (0.55-1.3); GLUCOSE,RANDOM 120 mg/dL (74-106); POTASSIUM 3.6 mmol/L (3.5-5.1); SGOT/AST 20 U/L (15-37); SGPT/ALT 22 U/L (13-61); SODIUM 140 mmol/L (136-145); TOT PROT 6.5 g/dl (6.4-8.2)
[2018-02-24 12:17] LABS: URINE APPEARANCE CLEAR; URINE BILIRUBIN NEGATIVE (<2.0 mg/dL); URINE COLOR LTYELLOW; URINE GLUCOSE (UA) NEGATIVE (NEGATIVE); URINE KETONE NEGATIVE (NEGATIVE); URINE LEUK ESTERASE TRACE (NEGATIVE); URINE NITRITE NEGATIVE (NEGATIVE); URINE PROTEIN NEGATIVE (NEGATIVE); URINE UROBILINOGEN NEGATIVE mg/dL (0.2-1.0)
[2018-02-24 12:31] LABS: EPI CELLS RARE /HPF (FEW); URINE HYALINE CAST 3 /lpf; URINE MUCUS RARE
--- NOTE | 2018-02-24 12:46 | PDOC ---
Attending Attestation - Resident Resident Name: YolieGary - ED Attending Attestation I have performed the following: I have examined & evaluated the patient, The case was reviewed & discussed with the resident, I agree w/resident's findings & plan, Exceptions are as noted - HPI HPI: 02/24/18 12:45 72-year-old male history of diabetes hypertension hyperlipidemia here today following a syncopal episode at [facility]. Patient states he had brief LOC denies any precipitating chest pain or palpitations. On arrival of EMS patient was noted to be hypotensive in the 70s and bradycardic in the 30s patient denies any nausea or vomiting states he has been eating well. 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 has has a stress test is normal 2016 an echo at that time which was also unremarkable currently denies any symptoms has had frequent UTIs but denies any dysuria hematuria or urinary frequency - Physicial Exam PE: 02/24/18 13:21 Awake alert no acute distress lungs are clear bilaterally heart is regular with any murmurs rubs or gallops abdomen is soft nontender abdominal scar noted from previous cholecystectomy no palpable hernia no pulsatile mass extremities are warm and well-perfused no noted edema patient is neurologically intact 5 out of 5 strength ANO 3 - Medical Decision Making 02/24/18 13:22 Differential diagnosis includes hypertension from infection such as pneumonia or UTI, dehydration, secondary symptomatically bradycardia patient is on a beta rubén and calcium channel rubén. Hypothyroid, electrolyte dysfunction dehydration or other cardiac dysrhythmia. Patient labs are unremarkable he was noted to be mildly hypothermic with an oral temp of 96 urine was negative for any infection patient has been stable bradycardia without symptoms in the ED in the 50s. Explained to patient that he should be admitted to telemetry monitoring and further workup for his syncope he is currently refusing he is aware of the risks of leaving is leaving AGAINST MEDICAL ADVICE. 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 Encouraged to return to the ED for any recurrent symptoms discharged home AMA Heart Score/ECG Review #2 General ECG Interpretation: Normal Intervals, No acute ischemic changes Compared to previous ECG there are: Other (bradycardia 55)
[2018-02-24 12:49] VITALS: BP 143/79; PULSE 55
--- NOTE | 2018-02-25 11:18 | EKG ---
Test Reason : Blood Pressure : / mmHG Vent. Rate : 055 BPM Atrial Rate : 055 BPM P-R Int : 196 ms QRS Dur : 112 ms QT Int : 492 ms P-R-T Axes : 021 -37 019 degrees QTc Int : 470 ms SINUS BRADYCARDIA LEFT AXIS DEVIATION VOLTAGE CRITERIA FOR LEFT VENTRICULAR HYPERTROPHY CANNOT RULE OUT SEPTAL INFARCT , AGE UNDETERMINED ABNORMAL ECG WHEN COMPARED WITH ECG OF 20-OCT-2017 12:13, LIKELY NO SIGNIFICANT CHANGES Confirmed by HARISH BRAND, KAREN ([id number]) on 02/25/2018 11:18:37 AM Referred By: Confirmed By:KAREN MOREIRA MD
== END 2018-02-24 12:59 | disposition left against medical advice (07) ==
LOC: JER 10:17
PROC: 3E0337Z Introduction of Electrolytic and Water Balance Substance into Peripheral Vein, Percutaneous Approach (ICD-10-PCS; principal; 2018-02-24)
DX: R55 Syncope and collapse (principal); I10 Essential (primary) hypertension; E78.5 Hyperlipidemia, unspecified; E11.9 Type 2 diabetes mellitus without complications
CPT/HCPCS: 36415; 71045-TC-FY; 80053; 81003; 81015; 82550; 82962; 83605; 84443; 84484; 85025; 87040; 87086; 93005; 93010; 96360; 99284-25; J7030

== ENCOUNTER 2019-01-28 20:13 | Emergency (ER) | payer OTHER, MEDICARE ==
--- NOTE | 2019-01-28 20:44 | PDOC ---
History of Present Illness - General Stated Complaint: DIABETIC Time Seen by Provider: 01/28/19 20:44 - History of Present Illness Initial Comments: 01/28/19 20:45 72 year old male with a history of HTN, HLD, DM, UTIs presents after a syncopal episode that occurred after he got up from the couch and went to make himself some toast. The patient does not recall what happened next but he fell to the ground. His son was in the house and states that he heard him fall to the ground and saw that he had loc for approximately 1 min. The patinet takes metformin and had not eaten anything for the entire day. He states that this has happened before ROS GENERAL/CONSTITUTIONAL: No fever or chills. No weakness. HEAD, EYES, EARS, NOSE AND THROAT: No change in vision. No ear pain or discharge. No sore throat. CARDIOVASCULAR: No chest pain or shortness of breath RESPIRATORY: No cough, wheezing, or hemoptysis. GASTROINTESTINAL: No nausea, vomiting, diarrhea or constipation. GENITOURINARY: No dysuria, frequency, or change in urination. MUSCULOSKELETAL: No joint or muscle swelling or pain. No neck or back pain. SKIN: No rash PE GENERAL: Awake, alert, and fully oriented, in no acute distress HEAD: + R forehead hematoma EYES: PERRLA, EOMI, sclera anicteric, conjunctiva clear ENT: oropharynx clear without exudates. Moist mucosa NECK: Normal ROM, supple LUNGS: No distress, speaks full sentences, clear to auscultation bilaterally HEART: Regular rate and rhythm, normal S1 and S2, no murmurs, rubs or gallops, peripheral pulses normal and equal bilaterally. ABDOMEN: Soft, nontender No guarding, no rebound. No masses EXTREMITIES : Normal inspection, Normal range of motion, no edema. No clubbing or cyanosis. NEUROLOGICAL: Cranial nerves II through XII grossly intact. Normal speech, no focal sensorimotor deficits SKIN: Warm, Dry, normal turgor, no rashes or lesions noted MDM DDX including but not limited to: W/U: - TX: - Scores: ED Course: ekg; sinus charley at 57bpm, Left axis, incomplete RBBB, nonspecific ST and T wave abnormality unchanged from prior CT head with suprasellar mass, possible aneurysm patient still desires to AMA. He expresses capacity risks included cardiac arrest, stroke, seizure, respiratory distress, and disability were explained to him He still desires to leave [facility] Angelica Trevizo, PGY2 Emergency Medicine 01/28/19 23:43 01/29/19 00:49 Past History - Past Medical History Allergies/Adverse Reactions: Allergies Allergy/AdvReac Type Severity Reaction Status Date / Time No Known Allergies Allergy Verified 02/24/18 10:25 Home Medications: Ambulatory Orders Levothyroxine [Synthroid -] 112 mcg PO DAILY 10/28/13 Multivitamins [Multivit ([facility] Formulary)] 1 tab PO DAILY 10/28/13 Gabapentin 300 mg PO BID 09/28/14 Amiodarone HCl [Cordarone -] 200 mg PO Q48H 04/22/16 Atorvastatin Ca [Lipitor] 10 mg PO HS tablet 04/22/16 metFORMIN HCL [Glucophage -] 500 mg PO DAILY #30 tablet 04/22/16 Metoprolol Succinate [Toprol XL -] 50 mg PO DAILY 02/24/18 Anemia: Yes Asthma: No Cancer: No Cardiac Disorders: No CVA: No COPD: No CHF: No DVT: No Dementia: No Diabetes: Yes Dialysis: No GI Disorders: Yes (GERD) Disorders: Yes (UTI b/c urosepsis requiring ICU admission 2013) HTN: Yes Hypercholesterolemia: Yes Kidney Stones: No Liver Disease: No Psychiatric Problems: No Seizures: No Thyroid Disease: Yes (hypo.) Lung CA: No - Surgical History Abdominal Surgery: Yes Appendectomy: No Cardiac Surgery: No Cholecystectomy: Yes (1975) Gastric Stapling: No GI Surgery: No Lung Surgery: No Neurologic Surgery: No Orthopedic Surgery: Yes ([facility]I) - Immunization History Td Vaccination: Yes TDAP Vaccination: No Immunization Up to Date: Yes - Psycho Social/Smoking Cessation Hx Smoking History: Former smoker Have you smoked in the past 12 months: No Number of Cigarettes Smoked Daily: 5 If you are a former smoker, when did you quit?: 2000 Hx Alcohol Use: No Drug/Substance Use Hx: No Substance Use Type: None Hx Substance Use Treatment: No ED Treatment Course - LABORATORY CBC & Chemistry Diagram: 01/28/19 21:50 01/28/19 21:50 - ADDITIONAL ORDERS Additional order review: Laboratory Results 01/28/19 20:19 POC Glucometer 197 11/05/19 20:19 POC Glucometer 197 Discharge - Discharge Information Problems reviewed: Yes Clinical Impression/Diagnosis: Syncopal episodes Condition: Fair Disposition: AGAINST MEDICAL ADVICE - Admission No - Follow up/Referral Referrals: Wayne Rodríguez MD, FAANS [Staff Physician] - - Patient Discharge Instructions Patient Printed Discharge Instructions: DI for Syncope in Adults (Fainting) Additional Instructions: You desire to leave against medical advise You had a syncopal episode and your Head CT showed an small mass possible anuerysm You should follow up with your family doctor You have a referral to Neurosurgery and should follow up within 1 week. Return to the ED if you experience chest pain, shortness of breath, repeat loss of consciousness or any other concerning symptoms - Post Discharge Activity
--- NOTE | 2019-01-28 20:57 | PDOC ---
Attending Attestation - Resident Resident Name: Angelica Trevizo - ED Attending Attestation I have performed the following: I have examined & evaluated the patient, The case was reviewed & discussed with the resident, I agree w/resident's findings & plan - HPI HPI: 01/28/19 23:30 see resident hpi - Physicial Exam PE: 01/28/19 23:30 agree with resident exam - Medical Decision Making 01/28/19 23:30 73-year-old male status post syncopal episode striking his head on the floor Plan for admission to medical service for further evaluation At this time patient is requesting to be discharged AGAINST MEDICAL ADVICE, he has agreed to wait for CT head results and is accompanied by family who agrees with taking him home
[2019-01-28 21:18] VITALS: BP 117/68; BMI 28.1
[2019-01-28 21:37] VITALS: PULSE 68; TEMP 97.4
[2019-01-28 22:25] LABS: BASO % 0.3 % (0-2.0); EOS % 0.6 % (0-4.5); HEMOGLOBIN 14.2 GM/dL (11.7-16.9); LYMPH % 9.7 % (8-40); MCH 30.9 pg (25.7-33.7); MCHC 34.5 g/dl (32.0-35.9); MEAN CELL VOLUME 89.4 fl (80-96); MEAN PLT VOLUME 6.2 fl (7.5-11.1); MONO % 5.6 % (3.8-10.2); NEUT % 83.8 % (42.8-82.8); PLATELET COUNT 257 K/MM3 (134-434); RBC 4.59 M/mm3 (4.00-5.60); RDW 13.1 % (11.9-15.9); WHITE BLOOD COUNT 9.8 K/mm3 (4.0-10.0)
[2019-01-28 22:52] LABS: ALBUMIN 3.6 g/dl (3.4-5.0); BILIRUBIN,TOTAL 0.9 mg/dL (0.2-1); BLOOD UREA NITROGEN 24.4 mg/dL (7-18); CALCIUM 8.6 mg/dL (8.5-10.1); CREATININE 1.2 mg/dL (0.55-1.3); POTASSIUM 4.3 mmol/L (3.5-5.1); TOT PROT 6.5 g/dl (6.4-8.2)
--- NOTE | 2019-01-29 11:39 | EKG ---
Test Reason : Blood Pressure : / mmHG Vent. Rate : 057 BPM Atrial Rate : 057 BPM P-R Int : 180 ms QRS Dur : 098 ms QT Int : 420 ms P-R-T Axes : 001 -42 -24 degrees QTc Int : 408 ms SINUS BRADYCARDIA LEFT AXIS DEVIATION INCOMPLETE RIGHT BUNDLE BRANCH BLOCK MODERATE VOLTAGE CRITERIA FOR LVH, MAY BE NORMAL VARIANT NONSPECIFIC ST AND T WAVE ABNORMALITY ABNORMAL ECG WHEN COMPARED WITH ECG OF 24-FEB-2018 10:34, NONSPECIFIC T WAVE ABNORMALITY, WORSE IN LATERAL LEADS QT HAS SHORTENED Confirmed by JERAMIE BRAND, CHAPINCITO ([id number]) on 01/29/2019 11:39:11 AM Referred By: Confirmed By:CHAPINCITO BOBO MD
== END 2019-01-29 01:10 | disposition left against medical advice (07) ==
LOC: JER 20:13
DX: R55 Syncope and collapse (principal); S09.8XXA Other specified injuries of head, initial encounter; S00.83XA Contusion of other part of head, initial encounter; W18.39XA Other fall on same level, initial encounter; Y93.89 Activity, other specified; Y92.018 Other place in single-family (private) house as the place of occurrence of the external cause; Y99.8 Other external cause status; I10 Essential (primary) hypertension; E11.9 Type 2 diabetes mellitus without complications; Z79.84 Long term (current) use of oral hypoglycemic drugs; E78.00 Pure hypercholesterolemia, unspecified; E03.9 Hypothyroidism, unspecified; Z87.440 Personal history of urinary (tract) infections; Z90.49 Acquired absence of other specified parts of digestive tract; K21.9 Gastro-esophageal reflux disease without esophagitis
CPT/HCPCS: 36415; 70450-TC; 71045-TC-FY; 72125-TC; 80053; 82962; 83605; 83880; 84439; 84443; 84484; 85025; 93005; 93010; 99284-25

== ENCOUNTER 2019-06-25 12:09 | Inpatient (IN) | payer OTHER, MEDICARE ==
[2019-06-25 12:37] VITALS: BMI 23.1
[2019-06-25] MEDS ORDERED: ACETAMINOPHEN 325 MG TABLET (FP) PO ONE (13:13)
[2019-06-25 14:25] LABS: BASO % 0.1 % (0-2.0); HEMATOCRIT 39.8 % (35.4-49); HEMOGLOBIN 13.8 GM/dL (11.7-16.9); LYMPH % 6.8 % (8-40); MCH 29.8 pg (25.7-33.7); MCHC 34.7 g/dl (32.0-35.9); MEAN CELL VOLUME 85.8 fl (80-96); MEAN PLT VOLUME 6.6 fl (7.5-11.1); MONO % 5.1 % (3.8-10.2); PLATELET COUNT 178 K/MM3 (134-434); RBC 4.64 M/mm3 (4.00-5.60); WHITE BLOOD COUNT 7.6 K/mm3 (4.0-10.0)
[2019-06-25 14:28] LABS: EPI CELLS 9 /uL (0-25.1); HYALINE CASTS 1 /uL (0-3.1); PH,URINE 5.5 (5.0-8.0); URINE BACTERIA 15 /uL (0-1359); URINE BILIRUBIN NEGATIVE (NEGATIVE); URINE COLOR DK YELLOW; URINE GLUCOSE (UA) NEGATIVE (NEGATIVE); URINE KETONE 1+ (NEGATIVE); URINE LEUK ESTERASE NEGATIVE (NEGATIVE); URINE NITRITE NEGATIVE (NEGATIVE); URINE PROTEIN 2+ (NEGATIVE); URINE RBC 13 /uL (0-23.9); URINE WBC 6 /uL (0-25.8); VENOUS BASE EXCESS 2.4 meq/l (-2-2); VENOUS PC02 36.7 mmHg (38-52); VENOUS PH 7.46 (7.31-7.41); VENOUS PO2 < 49 mmHg (28-48)
[2019-06-25 14:41] LABS: INR 1.1 (0.83-1.09)
[2019-06-25 14:44] LABS: ACTIVATED PTT 33.9 SECONDS (25.2-36.5)
[2019-06-25 14:53] LABS: URINE APPEARANCE SLIGHTLY CLOUDY
[2019-06-25] MEDS ORDERED: AZITHROMYCIN IVPB 500 MG in DEXTROSE 5%-WATER - 250 ML IVPB ONE (14:57)
[2019-06-25] MEDS ORDERED: CEFTRIAXONE 1,000 MG in DEXTROSE 5%-WATER - 50 ML IVPB ONE (14:57)
[2019-06-25 14:59] LABS: ALBUMIN 2.8 g/dl (3.4-5.0); ALK PHOS 107 U/L (45-117); ANION GAP 12 MMOL/L (8-16); BILIRUBIN,DIRECT 0.4 mg/dL (0.0-0.2); BILIRUBIN,TOTAL 0.9 mg/dL (0.2-1); CALCIUM 7.7 mg/dL (8.5-10.1); CHLORIDE 101 mmol/L (98-107); CO2 21 mmol/L (21-32); CREATININE 0.8 mg/dL (0.55-1.3); GLUCOSE,RANDOM 97 mg/dL (74-106); POTASSIUM 3.4 mmol/L (3.5-5.1); SGOT/AST 49 U/L (15-37); SGPT/ALT 28 U/L (13-61); SODIUM 135 mmol/L (136-145); TOT PROT 6.2 g/dl (6.4-8.2)
[2019-06-25 15:00] LABS: ANISOCYTOSIS 0; MACROCYTOSIS 0; PLATELET ESTIMATE NORMAL
[2019-06-25] MEDS ORDERED: ACETAMINOPHEN 325 MG TABLET (FP) ONE (15:30)
[2019-06-25] MEDS ORDERED: CEFTRIAXONE 1 GM/50 ML BAG ONE (15:31)
[2019-06-25] MEDS ORDERED: AZITHROMYCIN IVPB 500 MG/250 ML BAG IVPB ONE (15:31)
[2019-06-25 15:41] LABS: LDH 324 U/L (87-246)
[2019-06-26] MEDS ORDERED: POTASSIUM CHLORIDE TABS 20 MEQ TABLET.ER (FP) PO ONE (03:43)
[2019-06-26] MEDS: INSULIN SLIDING SCALE (NOVOLOG) 1 VIAL SQ SCH ×4 (06:09→21:56)
[2019-06-26] MEDS ORDERED: METOPROLOL TARTRATE 5 MG/5 ML VIAL IVPUSH ONE ×2 (06:38→13:45)
[2019-06-26] MEDS: POTASSIUM CHLORIDE 10 MEQ in SODIUM CHLORIDE 1,000 ML IVPB SCH (07:10)
[2019-06-26 08:11] LABS: BASO % 0.1 % (0-2.0); HEMATOCRIT 40.3 % (35.4-49); HEMOGLOBIN 14.3 GM/dL (11.7-16.9); MCH 30.3 pg (25.7-33.7); MCHC 35.6 g/dl (32.0-35.9); MEAN CELL VOLUME 84.9 fl (80-96); MEAN PLT VOLUME 6.8 fl (7.5-11.1); NEUT % 87.9 % (42.8-82.8); PLATELET COUNT 191 K/MM3 (134-434); RBC 4.74 M/mm3 (4.00-5.60); RDW 13.1 % (11.9-15.9); WHITE BLOOD COUNT 10.3 K/mm3 (4.0-10.0)
[2019-06-26 08:42] LABS: ALBUMIN 2.6 g/dl (3.4-5.0); BILIRUBIN,TOTAL 0.9 mg/dL (0.2-1); BLOOD UREA NITROGEN 13.2 mg/dL (7-18); CALCIUM 7.5 mg/dL (8.5-10.1); CREATININE 0.7 mg/dL (0.55-1.3); MAGNESIUM 1.9 mg/dL (1.8-2.4); PHOSPHOROUS 2.4 mg/dL (2.5-4.9); POTASSIUM 3.2 mmol/L (3.5-5.1); TOT PROT 5.8 g/dl (6.4-8.2)
[2019-06-26] MEDS ORDERED: ENOXAPARIN NA (PORCINE) 40 MG/0.4 ML DISP.SYRIN SQ SCH (10:00)
[2019-06-26] MEDS ORDERED: AZITHROMYCIN IVPB 500 MG in DEXTROSE 5%-WATER - 250 ML IVPB SCH (10:00)
[2019-06-26] MEDS: ZINC SULFATE 220 MG CAPSULE (FP) PO SCH (10:24)
[2019-06-26] MEDS: LEVOTHYROXINE NA 88 MCG TABLET (FP) PO SCH (12:57)
[2019-06-26] MEDS: GABAPENTIN 300 MG CAPSULE PO SCH ×2 (12:57→21:56)
[2019-06-26] MEDS: metoPROLOL SUCCINATE 25 MG TAB.SR.24H (FP) PO SCH (12:57)
[2019-06-26] MEDS: MULTIVITAMINS (DAILY MVI) TABLET (FP) PO SCH (12:57)
[2019-06-26] MEDS: AMIODARONE HCL 200 MG TABLET PO SCH (12:58)
[2019-06-26] MEDS: TAMSULOSIN HCL 0.4 MG CAP PO SCH (12:59)
[2019-06-26] MEDS: VALSARTAN 40 MG TABLET PO SCH (12:59)
[2019-06-26] MEDS ORDERED: FLUDROCORTISONE ACETATE 0.1 MG TABLET (FP) PO SCH (13:00)
[2019-06-26] MEDS ORDERED: AMIODARONE HCL 150 MG/3 ML VIAL ONE (13:09)
[2019-06-26] MEDS ORDERED: KCL 10 MEQ IVPB 10 MEQ/100 ML INFUS.BAG IVPB SCH (15:25)
[2019-06-26] MEDS ORDERED: NAPH,MB-DB/K PH,MBDB POWDER PACKET PO ONE (15:30)
[2019-06-26] MEDS ORDERED: POTASSIUM CHLORIDE ORAL LIQUID 20 MEQ/15 ML PO ONE (17:12)
[2019-06-26] MEDS ORDERED: MAGNESIUM OXIDE 400 MG TABLET (FP) PO ONE (17:13)
[2019-06-26] MEDS: APIXABAN 5 MG TABLET PO SCH (21:56)
[2019-06-27] MEDS: POTASSIUM CHLORIDE 10 MEQ in SODIUM CHLORIDE 1,000 ML IVPB SCH (02:45)
[2019-06-27] MEDS: LEVOTHYROXINE NA 88 MCG TABLET (FP) PO SCH (06:38)
[2019-06-27] MEDS: INSULIN SLIDING SCALE (NOVOLOG) 1 VIAL SQ SCH ×4 (06:38→23:33)
[2019-06-27 07:59] LABS: BASO % 0.1 % (0-2.0); EOS % 0.3 % (0-4.5); HEMATOCRIT 39.8 % (35.4-49); HEMOGLOBIN 13.8 GM/dL (11.7-16.9); LYMPH % 11.7 % (8-40); MCH 29.9 pg (25.7-33.7); MCHC 34.6 g/dl (32.0-35.9); MEAN CELL VOLUME 86.5 fl (80-96); MEAN PLT VOLUME 6.7 fl (7.5-11.1); MONO % 6.7 % (3.8-10.2); NEUT % 81.2 % (42.8-82.8); PLATELET COUNT 216 K/MM3 (134-434); RDW 13.3 % (11.9-15.9); WHITE BLOOD COUNT 8.8 K/mm3 (4.0-10.0)
[2019-06-27 08:14] LABS: ALBUMIN 2.4 g/dl (3.4-5.0); BILIRUBIN,TOTAL 0.8 mg/dL (0.2-1); BLOOD UREA NITROGEN 24.4 mg/dL (7-18); CALCIUM 7.5 mg/dL (8.5-10.1); MAGNESIUM 2.1 mg/dL (1.8-2.4); PHOSPHOROUS 3.2 mg/dL (2.5-4.9); POTASSIUM 4.2 mmol/L (3.5-5.1); TOT PROT 5.6 g/dl (6.4-8.2)
[2019-06-27] MEDS: ZINC SULFATE 220 MG CAPSULE (FP) PO SCH (09:26)
[2019-06-27] MEDS: GABAPENTIN 300 MG CAPSULE PO SCH ×2 (09:26→23:33)
[2019-06-27] MEDS: APIXABAN 5 MG TABLET PO SCH ×2 (09:26→23:33)
[2019-06-27] MEDS: TAMSULOSIN HCL 0.4 MG CAP PO SCH (09:26)
[2019-06-27] MEDS: VALSARTAN 40 MG TABLET PO SCH (09:26)
[2019-06-27] MEDS: MULTIVITAMINS (DAILY MVI) TABLET (FP) PO SCH (09:26)
[2019-06-27] MEDS: metoPROLOL SUCCINATE 25 MG TAB.SR.24H (FP) PO SCH (09:26)
[2019-06-27] MEDS: AMIODARONE HCL 200 MG TABLET PO SCH (09:27)
[2019-06-27] MEDS: AZITHROMYCIN IVPB 500 MG/250 ML BAG IVPB SCH (09:28)
[2019-06-27] MEDS ORDERED: FLUDROCORTISONE ACETATE 0.1 MG TABLET (FP) PO SCH (10:00)
[2019-06-28] MEDS: POTASSIUM CHLORIDE 10 MEQ in SODIUM CHLORIDE 1,000 ML IVPB SCH (02:47)
[2019-06-28] MEDS: LEVOTHYROXINE NA 88 MCG TABLET (FP) PO SCH (06:00)
[2019-06-28] MEDS: INSULIN SLIDING SCALE (NOVOLOG) 1 VIAL SQ SCH ×4 (06:00→21:45)
[2019-06-28 07:14] LABS: BASO % 0.2 % (0-2.0); EOS % 1.8 % (0-4.5); HEMATOCRIT 42.4 % (35.4-49); HEMOGLOBIN 14.6 GM/dL (11.7-16.9); LYMPH % 13.3 % (8-40); MCH 30.3 pg (25.7-33.7); MCHC 34.5 g/dl (32.0-35.9); MEAN CELL VOLUME 87.9 fl (80-96); MEAN PLT VOLUME 6.5 fl (7.5-11.1); MONO % 9.9 % (3.8-10.2); NEUT % 74.8 % (42.8-82.8); PLATELET COUNT 252 K/MM3 (134-434); RBC 4.83 M/mm3 (4.00-5.60); RDW 13.5 % (11.9-15.9)
[2019-06-28 07:46] LABS: ALBUMIN 2.4 g/dl (3.4-5.0); BILIRUBIN,TOTAL 0.9 mg/dL (0.2-1); BLOOD UREA NITROGEN 20.3 mg/dL (7-18); CALCIUM 7.5 mg/dL (8.5-10.1); CREATININE 1.1 mg/dL (0.55-1.3); MAGNESIUM 1.8 mg/dL (1.8-2.4); PHOSPHOROUS 3.1 mg/dL (2.5-4.9); POTASSIUM 4.2 mmol/L (3.5-5.1); TOT PROT 5.6 g/dl (6.4-8.2)
[2019-06-28] MEDS: VALSARTAN 40 MG TABLET PO SCH (09:47)
[2019-06-28] MEDS: TAMSULOSIN HCL 0.4 MG CAP PO SCH (09:47)
[2019-06-28] MEDS: ZINC SULFATE 220 MG CAPSULE (FP) PO SCH (09:47)
[2019-06-28] MEDS: GABAPENTIN 300 MG CAPSULE PO SCH ×2 (09:47→21:45)
[2019-06-28] MEDS: metoPROLOL SUCCINATE 25 MG TAB.SR.24H (FP) PO SCH (09:47)
[2019-06-28] MEDS: APIXABAN 5 MG TABLET PO SCH ×2 (09:47→21:45)
[2019-06-28] MEDS: AZITHROMYCIN IVPB 500 MG/250 ML BAG IVPB SCH (09:47)
[2019-06-28] MEDS: MULTIVITAMINS (DAILY MVI) TABLET (FP) PO SCH (09:47)
[2019-06-28] MEDS: AMIODARONE HCL 200 MG TABLET PO SCH (09:48)
[2019-06-28 11:47] LABS: PLATELET ESTIMATE NORMAL
[2019-06-28] MEDS ORDERED: ACETAMINOPHEN 325 MG TABLET (FP) PO PRN (16:46)
[2019-06-28] MEDS: ATORVASTATIN CA 40 MG TABLET (FP) PO SCH (21:45)
[2019-06-29] MEDS: POTASSIUM CHLORIDE 10 MEQ in SODIUM CHLORIDE 1,000 ML IVPB SCH ×3 (00:47→14:38)
[2019-06-29] MEDS: LEVOTHYROXINE NA 88 MCG TABLET (FP) PO SCH (06:25)
[2019-06-29] MEDS: INSULIN SLIDING SCALE (NOVOLOG) 1 VIAL SQ SCH ×4 (06:26→21:47)
[2019-06-29 08:24] LABS: BASO % 0.2 % (0-2.0); EOS % 2.3 % (0-4.5); HEMATOCRIT 37.6 % (35.4-49); HEMOGLOBIN 13.1 GM/dL (11.7-16.9); LYMPH % 13.9 % (8-40); MCH 30.1 pg (25.7-33.7); MCHC 34.9 g/dl (32.0-35.9); MEAN CELL VOLUME 86.2 fl (80-96); MONO % 9.6 % (3.8-10.2); PLATELET COUNT 277 K/MM3 (134-434); RBC 4.36 M/mm3 (4.00-5.60); RDW 12.9 % (11.9-15.9); WHITE BLOOD COUNT 5.5 K/mm3 (4.0-10.0)
[2019-06-29 08:52] LABS: ALBUMIN 2.1 g/dl (3.4-5.0); BILIRUBIN,TOTAL 0.7 mg/dL (0.2-1); BLOOD UREA NITROGEN 12.6 mg/dL (7-18); CALCIUM 7.4 mg/dL (8.5-10.1); CREATININE 0.7 mg/dL (0.55-1.3); MAGNESIUM 1.9 mg/dL (1.8-2.4); TOT PROT 5.3 g/dl (6.4-8.2)
[2019-06-29] MEDS: TAMSULOSIN HCL 0.4 MG CAP PO SCH (09:20)
[2019-06-29] MEDS: AMIODARONE HCL 200 MG TABLET PO SCH (09:21)
[2019-06-29] MEDS: VALSARTAN 40 MG TABLET PO SCH (09:22)
[2019-06-29] MEDS: ZINC SULFATE 220 MG CAPSULE (FP) PO SCH (09:23)
[2019-06-29] MEDS: GABAPENTIN 300 MG CAPSULE PO SCH ×2 (09:23→21:46)
[2019-06-29] MEDS: APIXABAN 5 MG TABLET PO SCH ×2 (09:23→21:46)
[2019-06-29] MEDS: metoPROLOL SUCCINATE 25 MG TAB.SR.24H (FP) PO SCH (09:23)
[2019-06-29] MEDS: MULTIVITAMINS (DAILY MVI) TABLET (FP) PO SCH (09:24)
[2019-06-29] MEDS: AZITHROMYCIN IVPB 500 MG/250 ML BAG IVPB SCH (09:24)
[2019-06-29 12:15] LABS: ANISOCYTOSIS 1+; MACROCYTOSIS 0; PLATELET ESTIMATE NORMAL
[2019-06-29] MEDS: ATORVASTATIN CA 40 MG TABLET (FP) PO SCH (21:46)
[2019-06-30] MEDS: POTASSIUM CHLORIDE 10 MEQ in SODIUM CHLORIDE 1,000 ML IVPB SCH ×3 (05:05→19:55)
[2019-06-30] MEDS: LEVOTHYROXINE NA 88 MCG TABLET (FP) PO SCH (06:17)
[2019-06-30] MEDS: INSULIN SLIDING SCALE (NOVOLOG) 1 VIAL SQ SCH ×4 (06:17→22:22)
[2019-06-30 08:19] LABS: BASO % 0.2 % (0-2.0); EOS % 1.4 % (0-4.5); HEMATOCRIT 39.4 % (35.4-49); HEMOGLOBIN 13.8 GM/dL (11.7-16.9); LYMPH % 11.8 % (8-40); MCH 30.3 pg (25.7-33.7); MEAN CELL VOLUME 86.4 fl (80-96); MEAN PLT VOLUME 6.3 fl (7.5-11.1); MONO % 10.5 % (3.8-10.2); NEUT % 76.1 % (42.8-82.8); PLATELET COUNT 299 K/MM3 (134-434); RBC 4.56 M/mm3 (4.00-5.60); RDW 12.7 % (11.9-15.9); WHITE BLOOD COUNT 6.3 K/mm3 (4.0-10.0)
[2019-06-30 08:52] LABS: ALBUMIN 2.2 g/dl (3.4-5.0); BILIRUBIN,TOTAL 1.1 mg/dL (0.2-1); BLOOD UREA NITROGEN 11.6 mg/dL (7-18); CALCIUM 7.4 mg/dL (8.5-10.1); CREATININE 0.8 mg/dL (0.55-1.3); MAGNESIUM 1.7 mg/dL (1.8-2.4); PHOSPHOROUS 3.6 mg/dL (2.5-4.9); POTASSIUM 3.9 mmol/L (3.5-5.1); TOT PROT 5.7 g/dl (6.4-8.2)
[2019-06-30] MEDS: TAMSULOSIN HCL 0.4 MG CAP PO SCH (09:31)
[2019-06-30] MEDS: MULTIVITAMINS (DAILY MVI) TABLET (FP) PO SCH (09:32)
[2019-06-30] MEDS: APIXABAN 5 MG TABLET PO SCH ×2 (09:32→22:25)
[2019-06-30] MEDS: metoPROLOL SUCCINATE 25 MG TAB.SR.24H (FP) PO SCH (09:32)
[2019-06-30] MEDS: AMIODARONE HCL 200 MG TABLET PO SCH (09:32)
[2019-06-30] MEDS: GABAPENTIN 300 MG CAPSULE PO SCH ×2 (09:33→22:25)
[2019-06-30] MEDS: VALSARTAN 40 MG TABLET PO SCH (09:33)
[2019-06-30] MEDS: AZITHROMYCIN IVPB 500 MG/250 ML BAG IVPB SCH (09:36)
[2019-06-30] MEDS ORDERED: MAGNESIUM SULF 50% (8.12 MEQ/2 ML-1 GM VIAL) IVPB ONE (09:49)
[2019-06-30] MEDS: ZINC SULFATE 220 MG CAPSULE (FP) PO SCH (10:24)
[2019-06-30 10:37] LABS: ANISOCYTOSIS 1+; MACROCYTOSIS 0; PLATELET ESTIMATE NORMAL
[2019-06-30] MEDS: ATORVASTATIN CA 40 MG TABLET (FP) PO SCH (22:25)
[2019-07-01] MEDS: POTASSIUM CHLORIDE 10 MEQ in SODIUM CHLORIDE 1,000 ML IVPB SCH (01:30)
[2019-07-01] MEDS: LEVOTHYROXINE NA 88 MCG TABLET (FP) PO SCH (06:40)
[2019-07-01] MEDS: INSULIN SLIDING SCALE (NOVOLOG) 1 VIAL SQ SCH ×4 (07:09→22:35)
[2019-07-01 08:16] LABS: BASO % 0.4 % (0-2.0); EOS % 1.7 % (0-4.5); HEMATOCRIT 38.8 % (35.4-49); HEMOGLOBIN 13.3 GM/dL (11.7-16.9); LYMPH % 13.2 % (8-40); MCH 29.7 pg (25.7-33.7); MCHC 34.3 g/dl (32.0-35.9); MEAN CELL VOLUME 86.6 fl (80-96); MEAN PLT VOLUME 6.2 fl (7.5-11.1); MONO % 11.1 % (3.8-10.2); NEUT % 73.6 % (42.8-82.8); PLATELET COUNT 341 K/MM3 (134-434); RBC 4.48 M/mm3 (4.00-5.60); RDW 12.9 % (11.9-15.9); WHITE BLOOD COUNT 7.5 K/mm3 (4.0-10.0)
[2019-07-01 08:53] LABS: ALBUMIN 2.1 g/dl (3.4-5.0); BILIRUBIN,TOTAL 1.1 mg/dL (0.2-1); BLOOD UREA NITROGEN 11.9 mg/dL (7-18); CALCIUM 7.7 mg/dL (8.5-10.1); CREATININE 0.7 mg/dL (0.55-1.3); MAGNESIUM 2.1 mg/dL (1.8-2.4); PHOSPHOROUS 3.6 mg/dL (2.5-4.9); POTASSIUM 4.5 mmol/L (3.5-5.1); TOT PROT 5.5 g/dl (6.4-8.2)
[2019-07-01 10:01] LABS: ANISOCYTOSIS 0; MACROCYTOSIS 0; PLATELET ESTIMATE NORMAL
[2019-07-01] MEDS: TAMSULOSIN HCL 0.4 MG CAP PO SCH (11:06)
[2019-07-01] MEDS: APIXABAN 5 MG TABLET PO SCH ×2 (11:07→22:35)
[2019-07-01] MEDS: AMIODARONE HCL 200 MG TABLET PO SCH (11:07)
[2019-07-01] MEDS: VALSARTAN 40 MG TABLET PO SCH (11:07)
[2019-07-01] MEDS: AZITHROMYCIN IVPB 500 MG/250 ML BAG IVPB SCH (11:08)
[2019-07-01] MEDS: metoPROLOL SUCCINATE 25 MG TAB.SR.24H (FP) PO SCH (11:08)
[2019-07-01] MEDS: MULTIVITAMINS (DAILY MVI) TABLET (FP) PO SCH (11:08)
[2019-07-01] MEDS: ZINC SULFATE 220 MG CAPSULE (FP) PO SCH (11:08)
[2019-07-01] MEDS: GABAPENTIN 300 MG CAPSULE PO SCH ×2 (11:08→22:35)
[2019-07-01] MEDS ORDERED: HYDROXYCHLOROQUINE SO4 200 MG TABLET (FP) PO SCH (12:00)
[2019-07-01] MEDS: HYDROXYCHLOROQUINE SO4 200 MG TABLET (FP) PO SCH ×2 (12:49→22:35)
[2019-07-01] MEDS: ASCORBIC ACID 500 MG TABLET (FP) PO SCH ×2 (14:35→22:35)
[2019-07-01] MEDS: ATORVASTATIN CA 40 MG TABLET (FP) PO SCH (22:35)
[2019-07-02] MEDS: INSULIN SLIDING SCALE (NOVOLOG) 1 VIAL SQ SCH ×4 (06:31→22:14)
[2019-07-02] MEDS: LEVOTHYROXINE NA 88 MCG TABLET (FP) PO SCH (06:31)
[2019-07-02 07:01] LABS: BASO % 0.3 % (0-2.0); EOS % 1.7 % (0-4.5); HEMATOCRIT 37.3 % (35.4-49); HEMOGLOBIN 12.9 GM/dL (11.7-16.9); LYMPH % 12.2 % (8-40); MCH 29.7 pg (25.7-33.7); MCHC 34.7 g/dl (32.0-35.9); MEAN CELL VOLUME 85.7 fl (80-96); MEAN PLT VOLUME 6.1 fl (7.5-11.1); MONO % 12.1 % (3.8-10.2); NEUT % 73.7 % (42.8-82.8); PLATELET COUNT 372 K/MM3 (134-434); RBC 4.36 M/mm3 (4.00-5.60); RDW 12.8 % (11.9-15.9); WHITE BLOOD COUNT 6.3 K/mm3 (4.0-10.0)
[2019-07-02 07:44] LABS: BLOOD UREA NITROGEN 11.4 mg/dL (7-18); CALCIUM 7.7 mg/dL (8.5-10.1); CREATININE 0.7 mg/dL (0.55-1.3); POTASSIUM 3.9 mmol/L (3.5-5.1); TOT PROT 5.6 g/dl (6.4-8.2)
[2019-07-02] MEDS: TAMSULOSIN HCL 0.4 MG CAP PO SCH (10:08)
[2019-07-02] MEDS: MULTIVITAMINS (DAILY MVI) TABLET (FP) PO SCH (10:08)
[2019-07-02] MEDS: APIXABAN 5 MG TABLET PO SCH ×2 (10:08→22:14)
[2019-07-02] MEDS: HYDROXYCHLOROQUINE SO4 200 MG TABLET (FP) PO SCH ×2 (10:08→22:14)
[2019-07-02] MEDS: ASCORBIC ACID 500 MG TABLET (FP) PO SCH ×2 (10:08→22:14)
[2019-07-02] MEDS: GABAPENTIN 300 MG CAPSULE PO SCH ×2 (10:08→22:14)
[2019-07-02] MEDS: VALSARTAN 40 MG TABLET PO SCH (10:08)
[2019-07-02] MEDS: ZINC SULFATE 220 MG CAPSULE (FP) PO SCH (10:08)
[2019-07-02] MEDS: AMIODARONE HCL 200 MG TABLET PO SCH (10:08)
[2019-07-02] MEDS: metoPROLOL SUCCINATE 25 MG TAB.SR.24H (FP) PO SCH (10:08)
[2019-07-02] MEDS: ATORVASTATIN CA 40 MG TABLET (FP) PO SCH (22:14)
[2019-07-03] MEDS: INSULIN SLIDING SCALE (NOVOLOG) 1 VIAL SQ SCH ×4 (06:32→21:40)
[2019-07-03] MEDS: LEVOTHYROXINE NA 88 MCG TABLET (FP) PO SCH (06:33)
[2019-07-03] MEDS: TAMSULOSIN HCL 0.4 MG CAP PO SCH (09:03)
[2019-07-03] MEDS: AMIODARONE HCL 200 MG TABLET PO SCH (11:29)
[2019-07-03] MEDS: GABAPENTIN 300 MG CAPSULE PO SCH ×2 (11:29→21:40)
[2019-07-03] MEDS: ZINC SULFATE 220 MG CAPSULE (FP) PO SCH (11:30)
[2019-07-03] MEDS: HYDROXYCHLOROQUINE SO4 200 MG TABLET (FP) PO SCH ×2 (11:31→21:41)
[2019-07-03] MEDS: APIXABAN 5 MG TABLET PO SCH ×2 (11:31→21:40)
[2019-07-03] MEDS: ASCORBIC ACID 500 MG TABLET (FP) PO SCH ×2 (11:34→21:41)
[2019-07-03] MEDS: metoPROLOL SUCCINATE 25 MG TAB.SR.24H (FP) PO SCH ×2 (11:37→14:50)
[2019-07-03] MEDS: VALSARTAN 40 MG TABLET PO SCH (11:37)
[2019-07-03] MEDS: MULTIVITAMINS (DAILY MVI) TABLET (FP) PO SCH (12:37)
[2019-07-03] MEDS: ATORVASTATIN CA 40 MG TABLET (FP) PO SCH (21:40)
[2019-07-04] MEDS: INSULIN SLIDING SCALE (NOVOLOG) 1 VIAL SQ SCH ×4 (06:03→22:08)
[2019-07-04] MEDS: LEVOTHYROXINE NA 88 MCG TABLET (FP) PO SCH (06:04)
[2019-07-04 08:52] LABS: BASO % 0.5 % (0-2.0); EOS % 1.5 % (0-4.5); HEMATOCRIT 37.9 % (35.4-49); HEMOGLOBIN 13.3 GM/dL (11.7-16.9); LYMPH % 14.4 % (8-40); MCH 30.4 pg (25.7-33.7); MEAN PLT VOLUME 6.1 fl (7.5-11.1); MONO % 10.3 % (3.8-10.2); NEUT % 73.3 % (42.8-82.8); PLATELET COUNT 473 K/MM3 (134-434); RBC 4.36 M/mm3 (4.00-5.60); RDW 12.8 % (11.9-15.9); WHITE BLOOD COUNT 6.1 K/mm3 (4.0-10.0)
[2019-07-04 09:26] LABS: ALBUMIN 2.2 g/dl (3.4-5.0); BILIRUBIN,TOTAL 0.8 mg/dL (0.2-1); CALCIUM 8.3 mg/dL (8.5-10.1); CREATININE 0.8 mg/dL (0.55-1.3); PHOSPHOROUS 3.8 mg/dL (2.5-4.9); POTASSIUM 4.4 mmol/L (3.5-5.1)
[2019-07-04] MEDS: TAMSULOSIN HCL 0.4 MG CAP PO SCH (09:45)
[2019-07-04] MEDS: AMIODARONE HCL 200 MG TABLET PO SCH (09:45)
[2019-07-04] MEDS: VALSARTAN 40 MG TABLET PO SCH (09:46)
[2019-07-04] MEDS: APIXABAN 5 MG TABLET PO SCH ×2 (09:46→22:08)
[2019-07-04] MEDS: ZINC SULFATE 220 MG CAPSULE (FP) PO SCH (09:47)
[2019-07-04] MEDS: GABAPENTIN 300 MG CAPSULE PO SCH ×2 (09:47→22:08)
[2019-07-04] MEDS: MULTIVITAMINS (DAILY MVI) TABLET (FP) PO SCH (09:48)
[2019-07-04] MEDS: metoPROLOL SUCCINATE 25 MG TAB.SR.24H (FP) PO SCH (09:48)
[2019-07-04] MEDS: HYDROXYCHLOROQUINE SO4 200 MG TABLET (FP) PO SCH ×2 (09:48→22:09)
[2019-07-04] MEDS: ASCORBIC ACID 500 MG TABLET (FP) PO SCH ×2 (09:49→22:09)
[2019-07-04] MEDS ORDERED: PT OWN MED DRAWER 7, Y5N ONE (16:16)
[2019-07-04] MEDS: ATORVASTATIN CA 40 MG TABLET (FP) PO SCH (22:08)
[2019-07-05] MEDS: INSULIN SLIDING SCALE (NOVOLOG) 1 VIAL SQ SCH ×4 (07:05→22:02)
[2019-07-05] MEDS: LEVOTHYROXINE NA 88 MCG TABLET (FP) PO SCH (07:06)
[2019-07-05 07:31] LABS: BASO % 0.7 % (0-2.0); EOS % 1.6 % (0-4.5); HEMATOCRIT 41.2 % (35.4-49); LYMPH % 17.5 % (8-40); MCH 29.7 pg (25.7-33.7); MEAN CELL VOLUME 87.4 fl (80-96); MONO % 10.1 % (3.8-10.2); NEUT % 70.1 % (42.8-82.8); PLATELET COUNT 488 K/MM3 (134-434); RBC 4.72 M/mm3 (4.00-5.60); WHITE BLOOD COUNT 7.1 K/mm3 (4.0-10.0)
[2019-07-05 08:13] LABS: ALBUMIN 2.3 g/dl (3.4-5.0); BILIRUBIN,TOTAL 0.9 mg/dL (0.2-1); BLOOD UREA NITROGEN 15.2 mg/dL (7-18); CALCIUM 8.3 mg/dL (8.5-10.1); CREATININE 0.8 mg/dL (0.55-1.3); MAGNESIUM 2.2 mg/dL (1.8-2.4); PHOSPHOROUS 4.2 mg/dL (2.5-4.9); POTASSIUM 4.4 mmol/L (3.5-5.1); TOT PROT 6.2 g/dl (6.4-8.2)
[2019-07-05] MEDS: MULTIVITAMINS (DAILY MVI) TABLET (FP) PO SCH (09:53)
[2019-07-05] MEDS: GABAPENTIN 300 MG CAPSULE PO SCH ×2 (09:53→22:01)
[2019-07-05] MEDS: metoPROLOL SUCCINATE 25 MG TAB.SR.24H (FP) PO SCH (09:53)
[2019-07-05] MEDS: TAMSULOSIN HCL 0.4 MG CAP PO SCH (09:53)
[2019-07-05] MEDS: VALSARTAN 40 MG TABLET PO SCH (09:54)
[2019-07-05] MEDS: APIXABAN 5 MG TABLET PO SCH ×2 (09:54→22:01)
[2019-07-05] MEDS: ASCORBIC ACID 500 MG TABLET (FP) PO SCH ×2 (09:54→22:02)
[2019-07-05] MEDS: AMIODARONE HCL 200 MG TABLET PO SCH (09:54)
[2019-07-05] MEDS: HYDROXYCHLOROQUINE SO4 200 MG TABLET (FP) PO SCH ×2 (09:55→22:02)
[2019-07-05] MEDS: ZINC SULFATE 220 MG CAPSULE (FP) PO SCH (09:55)
[2019-07-05] MEDS: ATORVASTATIN CA 40 MG TABLET (FP) PO SCH (22:01)
[2019-07-06] MEDS: INSULIN SLIDING SCALE (NOVOLOG) 1 VIAL SQ SCH ×3 (06:21→18:21)
[2019-07-06] MEDS: LEVOTHYROXINE NA 88 MCG TABLET (FP) PO SCH (06:22)
[2019-07-06 08:27] LABS: ALBUMIN 2.3 g/dl (3.4-5.0); BILIRUBIN,TOTAL 0.8 mg/dL (0.2-1); BLOOD UREA NITROGEN 16.8 mg/dL (7-18); CALCIUM 8.1 mg/dL (8.5-10.1); CREATININE 0.8 mg/dL (0.55-1.3); MAGNESIUM 2.3 mg/dL (1.8-2.4); PHOSPHOROUS 3.8 mg/dL (2.5-4.9); TOT PROT 5.9 g/dl (6.4-8.2)
[2019-07-06] MEDS: metoPROLOL SUCCINATE 25 MG TAB.SR.24H (FP) PO SCH (10:20)
[2019-07-06] MEDS: AMIODARONE HCL 200 MG TABLET PO SCH (10:21)
[2019-07-06] MEDS: VALSARTAN 40 MG TABLET PO SCH (10:21)
[2019-07-06] MEDS: APIXABAN 5 MG TABLET PO SCH ×2 (10:21→21:45)
[2019-07-06] MEDS: GABAPENTIN 300 MG CAPSULE PO SCH ×2 (10:21→21:45)
[2019-07-06] MEDS: ASCORBIC ACID 500 MG TABLET (FP) PO SCH ×2 (10:21→21:45)
[2019-07-06] MEDS: TAMSULOSIN HCL 0.4 MG CAP PO SCH (10:21)
[2019-07-06] MEDS: ZINC SULFATE 220 MG CAPSULE (FP) PO SCH (10:22)
[2019-07-06] MEDS: MULTIVITAMINS (DAILY MVI) TABLET (FP) PO SCH (10:22)
[2019-07-06] MEDS: ATORVASTATIN CA 40 MG TABLET (FP) PO SCH (21:45)
[2019-07-07] MEDS: INSULIN SLIDING SCALE (NOVOLOG) 1 VIAL SQ SCH ×3 (00:13→11:32)
[2019-07-07] MEDS: LEVOTHYROXINE NA 88 MCG TABLET (FP) PO SCH (06:02)
[2019-07-07 07:50] LABS: BLOOD UREA NITROGEN 16.6 mg/dL (7-18); CALCIUM 8.4 mg/dL (8.5-10.1); CREATININE 0.9 mg/dL (0.55-1.3); POTASSIUM 4.5 mmol/L (3.5-5.1)
[2019-07-07] MEDS: AMIODARONE HCL 200 MG TABLET PO SCH (09:12)
[2019-07-07] MEDS: APIXABAN 5 MG TABLET PO SCH (09:12)
[2019-07-07] MEDS: ASCORBIC ACID 500 MG TABLET (FP) PO SCH (09:12)
[2019-07-07] MEDS: ZINC SULFATE 220 MG CAPSULE (FP) PO SCH (09:13)
[2019-07-07] MEDS: MULTIVITAMINS (DAILY MVI) TABLET (FP) PO SCH (09:13)
[2019-07-07] MEDS: metoPROLOL SUCCINATE 25 MG TAB.SR.24H (FP) PO SCH (09:13)
[2019-07-07] MEDS: TAMSULOSIN HCL 0.4 MG CAP PO SCH (09:13)
[2019-07-07] MEDS: VALSARTAN 40 MG TABLET PO SCH (09:17)
[2019-07-07] MEDS: GABAPENTIN 300 MG CAPSULE PO SCH (09:17)
[2019-07-07 15:57] VITALS: BP 106/57; PULSE 71; TEMP 97.9
== END 2019-07-07 16:40 | disposition home or self-care (01) | DRG 177 ==
LOC: JER 12:09 → JERBED 16:34 → J4W 06-26 00:31
PROVIDERS: ADMIT Internal Medicine; ATTEND Internal Medicine
PROC: 8E0ZXY6 Isolation (ICD-10-PCS; principal; 2019-06-25)
DX: U07.1 COVID-19 (principal); J96.01 Acute respiratory failure with hypoxia; J12.89 Other viral pneumonia; E87.1 Hypo-osmolality and hyponatremia; R55 Syncope and collapse; E78.5 Hyperlipidemia, unspecified; E11.9 Type 2 diabetes mellitus without complications; Z87.440 Personal history of urinary (tract) infections; Z79.84 Long term (current) use of oral hypoglycemic drugs; E87.6 Hypokalemia; E83.51 Hypocalcemia; E03.9 Hypothyroidism, unspecified; N28.1 Cyst of kidney, acquired; I48.0 Paroxysmal atrial fibrillation; I11.0 Hypertensive heart disease with heart failure; I50.9 Heart failure, unspecified; M48.061 Spinal stenosis, lumbar region without neurogenic claudication; I77.810 Thoracic aortic ectasia; E88.09 Other disorders of plasma-protein metabolism, not elsewhere classified; R93.0 Abnormal findings on diagnostic imaging of skull and head, not elsewhere classified
CPT/HCPCS: 36415; 70450-TC; 71045-TC-FY; 71250-TC; 72125-TC; 73030-TC-LT-FY; 73070-TC-LT-FY; 74150-TC; 80048; 80053; 80061; 81003; 82248; 82550; 82728; 82803; 82962; 83605; 83615; 83721; 83735; 84100; 84439; 84443; 84484; 85025; 85379; 85384; 85610; 85730; 86140; 87040; 87086; 87186; 93005; 93010; 99285-25; U0002

== ENCOUNTER 2020-08-28 12:10 | Emergency (ER) | payer OTHER, MEDICARE ==
[2020-08-28 12:23] VITALS: TEMP 97.9; BMI 26.7
[2020-08-28] MEDS ORDERED: ACETAMINOPHEN 325 MG TABLET (FP) PO ONE (12:46)
[2020-08-28] MEDS ORDERED: ACETAMINOPHEN 325 MG TABLET (FP) ONE (12:54)
[2020-08-28] MEDS ORDERED: KETOROLAC TROMETHAMINE 30 MG/1 ML VIAL IM ONE (14:29)
[2020-08-28] MEDS ORDERED: CYCLOBENZAPRINE HCL 10 MG TABLET (FP) PO ONE (14:29)
[2020-08-28] MEDS ORDERED: KETOROLAC TROMETHAMINE 30 MG/1 ML VIAL ONE (14:36)
[2020-08-28] MEDS ORDERED: CYCLOBENZAPRINE HCL 10 MG TABLET (FP) ONE (14:36)
[2020-08-28 14:51] VITALS: BP 170/86; PULSE 90
== END 2020-08-28 17:55 | disposition home or self-care (01) ==
LOC: JER 12:10
PROC: 3E0233Z Introduction of Anti-inflammatory into Muscle, Percutaneous Approach (ICD-10-PCS; principal; 2020-08-28)
DX: M43.16 Spondylolisthesis, lumbar region (principal)
CPT/HCPCS: 72131-TC; 93005; 93010; 99284-25

== ENCOUNTER 2022-06-20 13:48 | Inpatient (IN) | payer OTHER, MEDICARE ==
[2022-06-20] MEDS ORDERED: CEFTRIAXONE 1 GM in DEXTROSE 5%-WATER - 100 ML IVPB ONE (14:29)
[2022-06-20 15:35] LABS: VENOUS O2 SATURATION 64.9 % (70-80); VENOUS PCO2 46.7 mmHg (38-52); VENOUS PH 7.332 (7.310-7.410)
[2022-06-20 15:39] LABS: BASO % 0.1 % (0-2.0); EOS % 0.3 % (0-4.5); HEMATOCRIT 38.7 % (35.4-49); HEMOGLOBIN 13.1 GM/dL (11.7-16.9); LYMPH % 6.6 % (8-40); MCH 28.9 pg (25.7-33.7); MCHC 33.8 g/dl (32.0-35.9); MEAN CELL VOLUME 85.6 fl (80-96); MEAN PLT VOLUME 6.4 fl (7.5-11.1); MONO % 7.4 % (3.8-10.2); NEUT % 85.6 % (42.8-82.8); PLATELET COUNT 253 10^3/uL (134-434); RBC 4.52 M/mm3 (4.00-5.60); RDW 13.4 % (11.9-15.9); WHITE BLOOD COUNT 17.4 K/mm3 (4.0-10.0)
[2022-06-20] MEDS ORDERED: SODIUM CHLORIDE 0.9% 500 ML INFUS.BAG IV ONE (15:45)
[2022-06-20] MEDS ORDERED: CEFTRIAXONE 1 GM/50 ML BAG ONE (15:51)
[2022-06-20 15:57] LABS: BLOOD UREA NITROGEN 22.8 mg/dL (7-18); CALCIUM 8.3 mg/dL (8.5-10.1)
[2022-06-20 15:58] LABS: ALBUMIN 3.4 g/dl (3.4-5.0)
[2022-06-20 16:00] LABS: CREATININE 1.3 mg/dL (0.55-1.3)
[2022-06-20 16:02] LABS: BILIRUBIN,TOTAL 1.4 mg/dL (0.2-1); TOT PROT 6.5 g/dl (6.4-8.2)
[2022-06-20 16:05] LABS: N-TERMINAL BNP 594.2 pg/ml (5-450)
[2022-06-20 16:29] LABS: EPI CELLS 2 /uL (0-25.1); HYALINE CASTS 27 /uL (0-3.1); PH,URINE 5.5 (5.0-8.0); URINE APPEARANCE CLOUDY; URINE BACTERIA >9,000 /uL (0-1359); URINE BILIRUBIN NEGATIVE (NEGATIVE); URINE COLOR DK YELLOW; URINE GLUCOSE (UA) NEGATIVE (NEGATIVE); URINE KETONE TRACE (NEGATIVE); URINE LEUK ESTERASE 2+ (NEGATIVE); URINE NITRITE NEGATIVE (NEGATIVE); URINE PROTEIN 1+ (NEGATIVE); URINE WBC 811 /uL (0-25.8)
[2022-06-20 16:51] LABS: URINE RBC 19 /uL (0-23.9)
[2022-06-20 21:39] VITALS: BMI 29.9
[2022-06-20] MEDS ORDERED: GABAPENTIN 300 MG CAPSULE PO SCH (22:00)
[2022-06-20] MEDS: APIXABAN 5 MG TABLET PO SCH (22:22)
[2022-06-21 07:51] LABS: HEMATOCRIT 36.8 % (35.4-49); HEMOGLOBIN 12.6 GM/dL (11.7-16.9); MCH 29.5 pg (25.7-33.7); MCHC 34.3 g/dl (32.0-35.9); MEAN CELL VOLUME 86.1 fl (80-96); MEAN PLT VOLUME 6.4 fl (7.5-11.1); PLATELET COUNT 208 10^3/uL (134-434); RBC 4.28 M/mm3 (4.00-5.60); RDW 13.4 % (11.9-15.9); WHITE BLOOD COUNT 18.9 K/mm3 (4.0-10.0)
[2022-06-21 08:15] LABS: BLOOD UREA NITROGEN 19.3 mg/dL (7-18)
[2022-06-21 08:19] LABS: CREATININE 1.2 mg/dL (0.55-1.3)
[2022-06-21] MEDS ORDERED: POTASSIUM CHLORIDE TABS 20 MEQ TABLET.ER (FP) PO ONE ×2 (08:41→15:00)
[2022-06-21] MEDS ORDERED: TAMSULOSIN HCL 0.4 MG CAP PO SCH (10:00)
[2022-06-21] MEDS: AMIODARONE HCL 200 MG TABLET PO SCH (11:03)
[2022-06-21] MEDS: ZINC SULFATE 220 MG CAPSULE (FP) PO SCH (11:03)
[2022-06-21] MEDS: APIXABAN 5 MG TABLET PO SCH ×2 (11:03→21:42)
[2022-06-21] MEDS: CEFTRIAXONE 1 GM in DEXTROSE 5%-WATER - 50 ML IVPB SCH (11:04)
[2022-06-21] MEDS: LEVOTHYROXINE NA 100 MCG TABLET (FP) PO SCH (11:04)
[2022-06-21] MEDS: MULTIVITAMINS (DAILY MVI) TABLET (FP) PO SCH (11:04)
[2022-06-21] MEDS: ACETAMINOPHEN 325 MG TABLET (FP) PO PRN (11:11)
[2022-06-21] MEDS: LIDOCAINE 5% TOPICAL PATCH TP SCH (16:24)
[2022-06-21] MEDS ORDERED: ACETAMINOPHEN 1000 MG/100 ML BAG IVPB ONE (19:41)
[2022-06-21] MEDS: LIDOCAINE PATCH REMOVAL MC SCH (21:43)
[2022-06-21 22:00] LABS: CALCIUM 8.2 mg/dL (8.5-10.1)
[2022-06-21 22:01] LABS: BLOOD UREA NITROGEN 19.7 mg/dL (7-18)
[2022-06-21 22:04] LABS: CREATININE 1.2 mg/dL (0.55-1.3)
[2022-06-22 08:49] LABS: BASO % 0.2 % (0-2.0); EOS % 2.2 % (0-4.5); HEMATOCRIT 36.3 % (35.4-49); HEMOGLOBIN 12.5 GM/dL (11.7-16.9); LYMPH % 12.3 % (8-40); MCH 29.7 pg (25.7-33.7); MCHC 34.5 g/dl (32.0-35.9); MEAN PLT VOLUME 6.9 fl (7.5-11.1); MONO % 6.8 % (3.8-10.2); NEUT % 78.5 % (42.8-82.8); PLATELET COUNT 237 10^3/uL (134-434); RBC 4.22 M/mm3 (4.00-5.60); RDW 13.3 % (11.9-15.9); WHITE BLOOD COUNT 11.3 K/mm3 (4.0-10.0)
[2022-06-22 09:30] LABS: CALCIUM 8.3 mg/dL (8.5-10.1)
[2022-06-22 09:31] LABS: BLOOD UREA NITROGEN 17.4 mg/dL (7-18); MAGNESIUM 2.1 mg/dL (1.8-2.4)
[2022-06-22 09:34] LABS: CREATININE 1.1 mg/dL (0.55-1.3); PHOSPHOROUS 2.8 mg/dL (2.5-4.9)
[2022-06-22 09:35] LABS: BILIRUBIN,TOTAL 0.8 mg/dL (0.2-1); TOT PROT 5.8 g/dl (6.4-8.2)
[2022-06-22 09:37] LABS: ALBUMIN 2.7 g/dl (3.4-5.0)
[2022-06-22] MEDS: ACETAMINOPHEN 325 MG TABLET (FP) PO PRN ×2 (09:41→19:27)
[2022-06-22] MEDS: CEFTRIAXONE 1 GM in DEXTROSE 5%-WATER - 50 ML IVPB SCH (09:43)
[2022-06-22] MEDS: MULTIVITAMINS (DAILY MVI) TABLET (FP) PO SCH (09:43)
[2022-06-22] MEDS: AMIODARONE HCL 200 MG TABLET PO SCH (09:44)
[2022-06-22] MEDS: LEVOTHYROXINE NA 100 MCG TABLET (FP) PO SCH (09:44)
[2022-06-22] MEDS: ZINC SULFATE 220 MG CAPSULE (FP) PO SCH (09:44)
[2022-06-22] MEDS: APIXABAN 5 MG TABLET PO SCH ×2 (09:45→21:29)
[2022-06-22] MEDS: LIDOCAINE 5% TOPICAL PATCH TP SCH (09:46)
[2022-06-22] MEDS: LIDOCAINE PATCH REMOVAL MC SCH (21:32)
[2022-06-23 06:46] VITALS: RESP 18
[2022-06-23 07:42] LABS: HEMATOCRIT 36.9 % (35.4-49); HEMOGLOBIN 12.8 GM/dL (11.7-16.9); MCH 29.5 pg (25.7-33.7); MCHC 34.5 g/dl (32.0-35.9); MEAN CELL VOLUME 85.4 fl (80-96); MEAN PLT VOLUME 6.2 fl (7.5-11.1); PLATELET COUNT 255 10^3/uL (134-434); RBC 4.33 M/mm3 (4.00-5.60); RDW 13.3 % (11.9-15.9); WHITE BLOOD COUNT 7.5 K/mm3 (4.0-10.0)
[2022-06-23 07:50] LABS: CALCIUM 8.2 mg/dL (8.5-10.1)
[2022-06-23 07:51] LABS: ALBUMIN 2.7 g/dl (3.4-5.0); BLOOD UREA NITROGEN 11.9 mg/dL (7-18); MAGNESIUM 1.9 mg/dL (1.8-2.4)
[2022-06-23 07:53] LABS: PHOSPHOROUS 2.8 mg/dL (2.5-4.9)
[2022-06-23 07:54] LABS: CREATININE 0.9 mg/dL (0.55-1.3)
[2022-06-23 07:55] LABS: BILIRUBIN,TOTAL 0.7 mg/dL (0.2-1); TOT PROT 5.9 g/dl (6.4-8.2)
[2022-06-23] MEDS: CEFTRIAXONE 1 GM in DEXTROSE 5%-WATER - 50 ML IVPB SCH (09:51)
[2022-06-23] MEDS: APIXABAN 5 MG TABLET PO SCH ×2 (09:52→21:54)
[2022-06-23] MEDS: AMIODARONE HCL 200 MG TABLET PO SCH (09:52)
[2022-06-23] MEDS: LEVOTHYROXINE NA 100 MCG TABLET (FP) PO SCH (09:52)
[2022-06-23] MEDS: TAMSULOSIN HCL 0.4 MG CAP PO SCH (09:52)
[2022-06-23] MEDS: ZINC SULFATE 220 MG CAPSULE (FP) PO SCH (09:52)
[2022-06-23] MEDS: LIDOCAINE 5% TOPICAL PATCH TP SCH (09:52)
[2022-06-23] MEDS: MULTIVITAMINS (DAILY MVI) TABLET (FP) PO SCH (09:53)
[2022-06-23] MEDS: ACETAMINOPHEN 325 MG TABLET (FP) PO PRN (09:53)
[2022-06-23] MEDS: VALSARTAN 40 MG TABLET PO SCH (09:53)
[2022-06-23] MEDS ORDERED: GABAPENTIN 300 MG CAPSULE PO SCH ×2 (10:00→14:00)
[2022-06-23 10:04] LABS: ANISOCYTOSIS 0; MACROCYTOSIS 0
[2022-06-23] MEDS: LIDOCAINE PATCH REMOVAL MC SCH (21:54)
[2022-06-24] MEDS: CEFTRIAXONE 1 GM in DEXTROSE 5%-WATER - 50 ML IVPB SCH (10:30)
[2022-06-24] MEDS: LIDOCAINE 5% TOPICAL PATCH TP SCH (10:30)
[2022-06-24] MEDS: VALSARTAN 40 MG TABLET PO SCH (10:31)
[2022-06-24] MEDS: ZINC SULFATE 220 MG CAPSULE (FP) PO SCH (10:31)
[2022-06-24] MEDS: TAMSULOSIN HCL 0.4 MG CAP PO SCH (10:31)
[2022-06-24] MEDS: AMIODARONE HCL 200 MG TABLET PO SCH (10:31)
[2022-06-24] MEDS: APIXABAN 5 MG TABLET PO SCH (10:32)
[2022-06-24] MEDS: MULTIVITAMINS (DAILY MVI) TABLET (FP) PO SCH (10:32)
[2022-06-24] MEDS: LEVOTHYROXINE NA 100 MCG TABLET (FP) PO SCH (10:32)
[2022-06-24 15:11] VITALS: BP 153/97; PULSE 79; TEMP 98.1
== END 2022-06-24 15:14 | DRG 690 ==
LOC: JER 13:48 → UNDOADMOB 17:08 → INTOOBSV 17:08 → JERBED 17:08 → J7W 20:42 → OBSVTOIN 06-22 15:11
PROVIDERS: ADMIT Internal Medicine
DX: N39.0 Urinary tract infection, site not specified (principal); I50.32 Chronic diastolic (congestive) heart failure; N17.9 Acute kidney failure, unspecified; E78.5 Hyperlipidemia, unspecified; E03.9 Hypothyroidism, unspecified; D35.2 Benign neoplasm of pituitary gland; D72.829 Elevated white blood cell count, unspecified; N40.0 Benign prostatic hyperplasia without lower urinary tract symptoms; M54.50 Low back pain, unspecified; I11.0 Hypertensive heart disease with heart failure; B96.20 Unspecified Escherichia coli [E. coli] as the cause of diseases classified elsewhere; I48.0 Paroxysmal atrial fibrillation
CPT/HCPCS: 0241U-QW; 36415; 70450-TC; 71045-TC-FY; 71250-TC; 72125-TC; 72170-TC-FY; 76856-TC; 80048; 80053; 81003; 82140; 82550; 82553; 82803; 82962; 83605; 83690; 83735; 83880; 84100; 84443; 84484; 85025; 87040; 87086; 87186; 87324; 87449; 93005; 93010; 93306-TC; 97116-GP; 97161-GP; 99285-25; G0378

== ENCOUNTER 2023-09-24 12:34 | Emergency (ER) | payer OTHER, MEDICARE ==
[2023-09-24 12:38] VITALS: BP 176/69; PULSE 59; RESP 16; TEMP 97.8; BMI 31.0
== END 2023-09-24 13:47 | disposition home or self-care (01) ==
LOC: JERFT 12:34
DX: H91.91 Unspecified hearing loss, right ear (principal)
CPT/HCPCS: 99283-25

== ENCOUNTER 2023-11-03 12:07 | Inpatient (IN) | payer OTHER, MEDICARE ==
[2023-11-03 13:24] LABS: BASO % 0.6 % (0-2.0); EOS % 0.9 % (0-4.5); HEMATOCRIT 38.8 % (35.4-49); HEMOGLOBIN 13.5 GM/dL (11.7-16.9); LYMPH % 12.8 % (8-40); MCH 29.3 pg (25.7-33.7); MCHC 34.9 g/dl (32.0-35.9); MONO % 9.1 % (3.8-10.2); NEUT % 76.6 % (42.8-82.8); PLATELET COUNT 319 10^3/uL (134-434); RBC 4.63 M/mm3 (4.00-5.60); RDW 16.3 % (11.9-15.9); WHITE BLOOD COUNT 7.7 K/mm3 (4.0-10.0)
[2023-11-03] MEDS: LACTATED RINGERS SOLUTION 1000 ML INFUS.BAG IV ONE (13:25)
[2023-11-03 13:26] LABS: MEAN PLT VOLUME 5.2 fl (7.5-11.1)
[2023-11-03 13:32] LABS: INR 1.03 (0.83-1.09); PROTHROMBIN TIME (PATIENT) 11.6 SEC (9.7-13.0)
[2023-11-03 13:34] LABS: ACTIVATED PTT 31.7 SECONDS (25.2-36.5)
[2023-11-03 13:41] LABS: POTASSIUM 3.4 mmol/L (3.5-5.1)
[2023-11-03 13:44] LABS: ALBUMIN 2.7 g/dl (3.4-5.0); BLOOD UREA NITROGEN 19.2 mg/dL (7-18); MAGNESIUM 1.6 mg/dL (1.8-2.4)
[2023-11-03 13:47] LABS: CREATININE 0.8 mg/dL (0.55-1.3)
[2023-11-03 13:48] LABS: BILIRUBIN,TOTAL 0.8 mg/dL (0.2-1); TOT PROT 5.5 g/dl (6.4-8.2)
[2023-11-03 13:52] LABS: N-TERMINAL BNP 1480.7 pg/ml (5-450)
[2023-11-03] MEDS ORDERED: ACETAMINOPHEN INJECTION 100 ML IVPB ONE (14:10)
[2023-11-03 14:12] LABS: EPI CELLS 2 /uL (0-25.1); HYALINE CASTS 0 /uL (0-3.1); PH,URINE 6.5 (5.0-8.0); URINE APPEARANCE CLEAR; URINE BACTERIA 6 /uL (0-1359); URINE BILIRUBIN NEGATIVE (NEGATIVE); URINE COLOR YELLOW; URINE GLUCOSE (UA) NEGATIVE (NEGATIVE); URINE KETONE TRACE (NEGATIVE); URINE LEUK ESTERASE NEGATIVE (NEGATIVE); URINE NITRITE NEGATIVE (NEGATIVE); URINE PROTEIN 1+ (NEGATIVE); URINE RBC 14 /uL (0-23.9); URINE WBC 3 /uL (0-25.8)
[2023-11-03] MEDS: ACETAMINOPHEN 1000 MG/100 ML BAG IVPB ONE (14:14)
[2023-11-03] MEDS ORDERED: CEFTRIAXONE 1 GM/50 ML BAG ONE (15:14)
[2023-11-03] MEDS ORDERED: MAGNESIUM SULFATE IN WATER 2 GM/50 ML IVPB IVPB ONE ×2 (15:14→18:28)
[2023-11-03] MEDS ORDERED: AZITHROMYCIN IVPB 500 MG/250 ML BAG IVPB ONE (15:15)
[2023-11-03] MEDS: CEFTRIAXONE 1,000 MG in DEXTROSE 5%-WATER - 50 ML IVPB ONE (15:17)
[2023-11-03] MEDS ORDERED: FUROSEMIDE 40 MG TABLET (FP) ONE (16:37)
[2023-11-03] MEDS ORDERED: POTASSIUM CHLORIDE TABS 20 MEQ TABLET.ER (FP) PO ONE (16:38)
[2023-11-03] MEDS: AZITHROMYCIN IVPB 500 MG in DEXTROSE 5%-WATER - 250 ML IVPB ONE (16:43)
[2023-11-03] MEDS: POTASSIUM CHLORIDE TABS 20 MEQ TABLET.ER (FP) PO ONE (16:43)
[2023-11-03] MEDS: FUROSEMIDE 40 MG TABLET (FP) PO SCH (16:43)
[2023-11-03] MEDS: MAGNESIUM SULFATE IN WATER 2 GM/50 ML IVPB IVPB ONE (18:48)
[2023-11-03] MEDS ORDERED: APIXABAN 5 MG TABLET ONE (22:11)
[2023-11-03] MEDS ORDERED: ATORVASTATIN CA 10 MG TABLET (FP) ONE (22:11)
[2023-11-03] MEDS: ATORVASTATIN CA 10 MG TABLET (FP) PO SCH (22:16)
[2023-11-03] MEDS: APIXABAN 5 MG TABLET PO SCH (22:17)
[2023-11-04] MEDS: VALSARTAN 80 MG TABLET PO ONE (00:27)
[2023-11-04] MEDS: VALSARTAN 160 MG TABLET PO ONE (00:28)
[2023-11-04] MEDS: LEVOTHYROXINE NA 100 MCG TABLET (FP) PO SCH (06:07)
[2023-11-04] MEDS: TAMSULOSIN HCL 0.4 MG CAP PO SCH (08:02)
[2023-11-04] MEDS: MEMANTINE HCL 10 MG TABLET (FP) PO SCH (10:06)
[2023-11-04] MEDS: AMIODARONE HCL 200 MG TABLET PO SCH (10:06)
[2023-11-04 10:29] LABS: BASO % 0.3 % (0-2.0); EOS % 0.5 % (0-4.5); HEMATOCRIT 41.5 % (35.4-49); HEMOGLOBIN 14.8 GM/dL (11.7-16.9); LYMPH % 14.6 % (8-40); MCH 29.6 pg (25.7-33.7); MCHC 35.6 g/dl (32.0-35.9); MEAN CELL VOLUME 83.2 fl (80-96); MONO % 7.5 % (3.8-10.2); NEUT % 77.1 % (42.8-82.8); PLATELET COUNT 365 10^3/uL (134-434); RBC 4.99 M/mm3 (4.00-5.60); RDW 16.2 % (11.9-15.9); WHITE BLOOD COUNT 8.2 K/mm3 (4.0-10.0)
[2023-11-04 10:30] LABS: MEAN PLT VOLUME 5.3 fl (7.5-11.1)
[2023-11-04 10:53] LABS: POTASSIUM 3.8 mmol/L (3.5-5.1)
[2023-11-04 10:57] LABS: BLOOD UREA NITROGEN 11.6 mg/dL (7-18); CALCIUM 8.4 mg/dL (8.5-10.1)
[2023-11-04 11:01] LABS: CREATININE 0.9 mg/dL (0.55-1.3)
[2023-11-04 12:06] LABS: MAGNESIUM 1.8 mg/dL (1.8-2.4)
[2023-11-04] MEDS: FLUDROCORTISONE ACETATE 0.1 MG TABLET (FP) PO SCH (12:35)
[2023-11-04] MEDS: GABAPENTIN 300 MG CAPSULE PO SCH (12:36)
[2023-11-04] MEDS: CLOTRIMAZOLE 1%TOPICAL SOLUTION 30 ML BOTTLE TP SCH (13:48)
[2023-11-04 15:47] LABS: POTASSIUM 3.3 mmol/L (3.5-5.1)
[2023-11-04 15:48] LABS: CALCIUM 7.8 mg/dL (8.5-10.1)
[2023-11-04 15:49] LABS: BLOOD UREA NITROGEN 12.8 mg/dL (7-18)
[2023-11-04] MEDS: POTASSIUM CHLORIDE TABS 10 MEQ TABLET.ER (FP) PO ONE (18:09)
[2023-11-04] MEDS: MAGNESIUM CL 64 MG TABLET.SA PO SCH (21:02)
[2023-11-04] MEDS: MIRTAZAPINE 15 MG TABLET (FP) PO SCH (21:03)
[2023-11-05 12:47] LABS: BASO % 0.4 % (0-2.0); HEMATOCRIT 40.9 % (35.4-49); HEMOGLOBIN 14.2 GM/dL (11.7-16.9); LYMPH % 15.3 % (8-40); MCH 29.2 pg (25.7-33.7); MCHC 34.6 g/dl (32.0-35.9); MEAN CELL VOLUME 84.5 fl (80-96); MONO % 5.9 % (3.8-10.2); NEUT % 77.4 % (42.8-82.8); PLATELET COUNT 342 10^3/uL (134-434); RBC 4.84 M/mm3 (4.00-5.60); RDW 16.3 % (11.9-15.9); WHITE BLOOD COUNT 6.8 K/mm3 (4.0-10.0)
[2023-11-05 12:48] LABS: MEAN PLT VOLUME 5.2 fl (7.5-11.1)
[2023-11-05 13:08] LABS: POTASSIUM 3.9 mmol/L (3.5-5.1)
[2023-11-05 13:10] LABS: ALBUMIN 2.8 g/dl (3.4-5.0); BLOOD UREA NITROGEN 14.8 mg/dL (7-18); CALCIUM 8.6 mg/dL (8.5-10.1); MAGNESIUM 2.1 mg/dL (1.8-2.4)
[2023-11-05 13:13] LABS: PHOSPHOROUS 3.9 mg/dL (2.5-4.9)
[2023-11-05 13:15] LABS: BILIRUBIN,TOTAL 0.8 mg/dL (0.2-1); TOT PROT 5.9 g/dl (6.4-8.2)
[2023-11-05] MEDS: ACETAMINOPHEN 325 MG TABLET (FP) PO PRN (15:16)
[2023-11-05] MEDS: FUROSEMIDE 40 MG/4 ML INJECTABLE VIAL IVPUSH ONE (15:17)
[2023-11-06 14:36] VITALS: BMI 28.0
[2023-11-06] MEDS: POLYETHYLENE GLYCOL (HEALTHYLAX) 3350 17 GM PACKET PO SCH (17:34)
[2023-11-07 09:11] VITALS: RESP 18
[2023-11-07 10:59] LABS: BASO % 0.4 % (0-2.0); EOS % 1.4 % (0-4.5); HEMATOCRIT 42.7 % (35.4-49); HEMOGLOBIN 14.5 GM/dL (11.7-16.9); LYMPH % 19.6 % (8-40); MCHC 34.1 g/dl (32.0-35.9); MEAN CELL VOLUME 85.1 fl (80-96); MONO % 5.8 % (3.8-10.2); NEUT % 72.8 % (42.8-82.8); PLATELET COUNT 361 10^3/uL (134-434); RBC 5.01 M/mm3 (4.00-5.60); RDW 16.6 % (11.9-15.9); WHITE BLOOD COUNT 8.2 K/mm3 (4.0-10.0)
[2023-11-07 11:01] LABS: MEAN PLT VOLUME 5.5 fl (7.5-11.1)
[2023-11-07 11:20] LABS: POTASSIUM 4.2 mmol/L (3.5-5.1)
[2023-11-07 11:23] LABS: ALBUMIN 2.7 g/dl (3.4-5.0); BLOOD UREA NITROGEN 20.2 mg/dL (7-18); CALCIUM 8.3 mg/dL (8.5-10.1); MAGNESIUM 2.2 mg/dL (1.8-2.4)
[2023-11-07 11:27] LABS: PHOSPHOROUS 3.5 mg/dL (2.5-4.9)
[2023-11-07 11:28] LABS: TOT PROT 5.8 g/dl (6.4-8.2)
[2023-11-07 13:50] VITALS: BP 123/73; PULSE 82; TEMP 97.5
== END 2023-11-07 18:58 | DRG 291 ==
LOC: JER 12:07 → JERBED 14:59 → J5S 22:58 → OBSVTOIN 11-04 11:40 → J5S 11-06 10:58
PROVIDERS: ADMIT Internal Medicine
DX: I11.0 Hypertensive heart disease with heart failure (principal); I50.33 Acute on chronic diastolic (congestive) heart failure; E87.1 Hypo-osmolality and hyponatremia; E78.5 Hyperlipidemia, unspecified; E03.9 Hypothyroidism, unspecified; N40.0 Benign prostatic hyperplasia without lower urinary tract symptoms; I50.9 Heart failure, unspecified; I16.0 Hypertensive urgency; I48.0 Paroxysmal atrial fibrillation; R62.7 Adult failure to thrive; F03.90 Unspecified dementia, unspecified severity, without behavioral disturbance, psychotic disturbance, mood disturbance, and anxiety
CPT/HCPCS: 0241U-QW; 36415; 70450-TC; 70551-TC; 71045-TC-FY; 71250-TC; 80048; 80053; 81003; 82140; 82962; 83735; 83880; 84100; 84443; 84484; 85025; 85610; 85730; 86850; 86900; 86901; 87086; 87899; 93005; 93010; 93306-TC; 97116-GP; 97162-GP; 99285-25; G0378; J0131

== ENCOUNTER 2023-11-12 12:19 | Emergency (ER) | payer OTHER, MEDICARE ==
[2023-11-12 13:05] VITALS: BP 123/79; PULSE 75; RESP 17; TEMP 97.7; BMI 29.0
[2023-11-12 14:15] LABS: BASO % 0.7 % (0-2.0); EOS % 0.8 % (0-4.5); HEMATOCRIT 41.6 % (35.4-49); HEMOGLOBIN 14.1 GM/dL (11.7-16.9); LYMPH % 14.4 % (8-40); MCH 29.2 pg (25.7-33.7); MCHC 33.8 g/dl (32.0-35.9); MEAN CELL VOLUME 86.2 fl (80-96); MEAN PLT VOLUME 5.6 fl (7.5-11.1); MONO % 5.4 % (3.8-10.2); NEUT % 78.7 % (42.8-82.8); PLATELET COUNT 335 10^3/uL (134-434); RBC 4.83 M/mm3 (4.00-5.60); RDW 16.5 % (11.9-15.9); WHITE BLOOD COUNT 10.6 K/mm3 (4.0-10.0)
[2023-11-12 14:27] LABS: ACTIVATED PTT 23.9 SECONDS (25.2-36.5); PROTHROMBIN TIME (PATIENT) 11.5 SEC (9.7-13.0)
[2023-11-12 14:33] LABS: POTASSIUM 5.6 mmol/L (3.5-5.1)
[2023-11-12 14:35] LABS: CALCIUM 8.4 mg/dL (8.5-10.1)
[2023-11-12 14:36] LABS: ALBUMIN 2.8 g/dl (3.4-5.0); BLOOD UREA NITROGEN 17.2 mg/dL (7-18); MAGNESIUM 2.3 mg/dL (1.8-2.4)
[2023-11-12 14:39] LABS: CREATININE 1.1 mg/dL (0.55-1.3); PHOSPHOROUS 3.8 mg/dL (2.5-4.9)
[2023-11-12 14:41] LABS: BILIRUBIN,TOTAL 0.9 mg/dL (0.2-1); TOT PROT 6.2 g/dl (6.4-8.2)
[2023-11-12] MEDS: FLUDROCORTISONE ACETATE 0.1 MG TABLET (FP) PO ONE (15:25)
[2023-11-12] MEDS ORDERED: AMOX TR/POT CLAV 875MG/125MG TABLETS (FP) ONE (15:42)
[2023-11-12] MEDS ORDERED: AZITHROMYCIN IVPB 500 MG/250 ML BAG IVPB ONE (15:42)
[2023-11-12] MEDS: AZITHROMYCIN IVPB 500 MG in DEXTROSE 5%-WATER - 250 ML IVPB ONE (15:50)
[2023-11-12] MEDS: AMOX TR/POT CLAV 875MG/125MG TABLETS (FP) PO ONE (15:50)
== END 2023-11-12 18:15 | disposition home or self-care (01) ==
LOC: JER 12:19
DX: R55 Syncope and collapse (principal)
CPT/HCPCS: 36415; 71045-TC-FY; 80053; 82962; 83735; 84100; 84484; 85025; 85610; 85730; 93005; 93010; 96365; 99285-25

== ENCOUNTER 2023-12-17 13:37 | Emergency (ER) | payer OTHER, MEDICARE ==
[2023-12-17 14:29] VITALS: RESP 18; BMI 27.7
[2023-12-17] MEDS: SODIUM CHLORIDE 0.9% 500 ML INFUS.BAG IV ONE (15:23)
[2023-12-17 15:27] LABS: BASO % 0.5 % (0-2.0); HEMATOCRIT 40.3 % (35.4-49); HEMOGLOBIN 13.6 GM/dL (11.7-16.9); MCH 29.7 pg (25.7-33.7); MCHC 33.9 g/dl (32.0-35.9); MEAN CELL VOLUME 87.6 fl (80-96); MEAN PLT VOLUME 5.9 fl (7.5-11.1); MONO % 6.9 % (3.8-10.2); NEUT % 77.6 % (42.8-82.8); PLATELET COUNT 250 10^3/uL (134-434); RBC 4.59 M/mm3 (4.00-5.60); RDW 16.4 % (11.9-15.9); WHITE BLOOD COUNT 9.9 K/mm3 (4.0-10.0)
[2023-12-17 15:44] LABS: POTASSIUM 3.3 mmol/L (3.5-5.1)
[2023-12-17 15:47] LABS: ALBUMIN 3.5 g/dl (3.4-5.0); BLOOD UREA NITROGEN 23.9 mg/dL (7-18); CALCIUM 8.5 mg/dL (8.5-10.1)
[2023-12-17 15:51] LABS: BILIRUBIN,TOTAL 1.4 mg/dL (0.2-1); CREATININE 1.1 mg/dL (0.55-1.3)
[2023-12-17 15:52] LABS: TOT PROT 6.2 g/dl (6.4-8.2)
[2023-12-17 17:00] LABS: N-TERMINAL BNP 1979.1 pg/ml (5-450)
[2023-12-17] MEDS ORDERED: POTASSIUM CHLORIDE TABS 20 MEQ TABLET.ER (FP) PO ONE (17:11)
[2023-12-17] MEDS: POTASSIUM CHLORIDE TABS 20 MEQ TABLET.ER (FP) PO ONE (17:15)
[2023-12-17 18:37] VITALS: PULSE 53
[2023-12-17 19:18] LABS: POTASSIUM 3.2 mmol/L (3.5-5.1)
[2023-12-17 19:20] LABS: CALCIUM 7.8 mg/dL (8.5-10.1)
[2023-12-17 19:21] LABS: BLOOD UREA NITROGEN 20.5 mg/dL (7-18)
[2023-12-17 19:42] LABS: PH,URINE 5.5 (5.0-8.0); URINE APPEARANCE CLEAR; URINE BILIRUBIN NEGATIVE (NEGATIVE); URINE COLOR YELLOW; URINE GLUCOSE (UA) 1+ (NEGATIVE); URINE KETONE NEGATIVE (NEGATIVE); URINE LEUK ESTERASE NEGATIVE (NEGATIVE); URINE NITRITE NEGATIVE (NEGATIVE); URINE PROTEIN TRACE (NEGATIVE)
[2023-12-17 20:10] VITALS: BP 168/75
[2023-12-17] MEDS: POTASSIUM CHLORIDE ORAL LIQUID 20 MEQ/15 ML PO ONE (20:16)
== END 2023-12-17 20:16 | disposition home or self-care (01) ==
LOC: JER 13:37
DX: R55 Syncope and collapse (principal); R42 Dizziness and giddiness; Z20.822 Contact with and (suspected) exposure to COVID-19
CPT/HCPCS: 0241U-QW; 36415; 71045-TC-FY; 80048; 80053; 81003; 82962; 83880; 84484; 85025; 87086; 93005; 93010; 99285-25